=== PATIENT | male | born 1940 | race Caucasian/White ===

== ENCOUNTER 2018-01-05 08:00 | Outpatient (CLI) | payer MEDICARE, BC ==
[2018-01-05] MEDS ORDERED: Gadobenate Dimeglumine 529 MG/1 ML (20ML VIAL) ONE (08:24)
== END 2018-01-05 08:01 | disposition home or self-care (01) ==
LOC: BICMRI 08:00
PROVIDERS: ATTEND Internal Medicine Gastroenterology
DX: K74.60 Unspecified cirrhosis of liver (principal); R16.0 Hepatomegaly, not elsewhere classified; R41.3 Other amnesia; K76.9 Liver disease, unspecified; R93.7 Abnormal findings on diagnostic imaging of other parts of musculoskeletal system
CPT/HCPCS: 74183; A9579

== ENCOUNTER 2019-01-16 03:58 | Emergency (ER) | payer MEDICARE, BC | END 2019-01-16 05:16 | disposition home or self-care (01) | LOC: ERS 03:58 | DX: I10 Essential (primary) hypertension (principal); N40.0 Benign prostatic hyperplasia without lower urinary tract symptoms; F41.9 Anxiety disorder, unspecified; Z79.899 Other long term (current) drug therapy | CPT/HCPCS: 93005 ==

== ENCOUNTER 2019-01-16 21:19 | Emergency (ER) | payer MEDICARE, BC ==
[2019-01-17 00:17] LABS: #Eosinphils 0.3 thou/uL (0.0-0.7); #Monocytes 0.6 thou/uL (0.11-0.59); #Neutrophils 4.3 thou/uL (1.40-6.50); %Basophils 0.6 % (0.0-1.0); %Eosinophils 4.1 % (0.0-10.0); %Lymphocytes 15.5 % (21.0-51.0); %Monocytes 9.7 % (0.0-10.0); %Neutrophils 70.1 % (42.0-75.0); Hemoglobin 14.5 g/dL (14.0-18.0); Mean Corpuscular HGB CONC 33.8 g/dL (32.0-36.0); Mean Corpuscular Hemoglobin 32.9 pg (27.0-31.0); Mean Corpuscular Volume 97.3 fL (78.0-98.0); Platelet Count 232 thou/uL (130-400); RBC Distribution Width 11.8 % (11.5-14.5); White Blood Cell (WBC) Count 6.2 thou/uL (4.8-10.8)
[2019-01-17 00:35] LABS: ALT (SGPT) 15 U/L (8-55); AST (SGOT) 24 U/L (5-34); Albumin 4.5 g/dL (3.4-4.8); Alkaline Phosphatase 76 U/L (40-150); Anion Gap 14 mmol/L (10-20); BUN (Urea Nitrogen) 12 mg/dL (8.4-25.7); Bilirubin, Total 1.6 mg/dL (0.2-1.2); Calc. Creatinine Clearance 0 mL/min (70-130); Calcium 9.5 mg/dL (7.8-10.44); Carbon Dioxide 24 mmol/L (23-31); Chloride 92 mmol/L (98-107); Estimated GFR-MDRD Greater than 90; Globulin 2.7 g/dL (2.4-3.5); Glucose 76 mg/dL (83-110); Potassium 4.1 mmol/L (3.5-5.1); Protein, Total 7.2 g/dL (5.8-8.1); Sodium 126 mmol/L (136-145)
[2019-01-17] MEDS ORDERED: Ibuprofen 200 MG TAB ONE (01:27)
== END 2019-01-17 01:44 | disposition home or self-care (01) ==
LOC: ERS 21:19
DX: I10 Essential (primary) hypertension (principal); E87.1 Hypo-osmolality and hyponatremia; F41.9 Anxiety disorder, unspecified; N40.0 Benign prostatic hyperplasia without lower urinary tract symptoms; Z86.19 Personal history of other infectious and parasitic diseases; Z79.899 Other long term (current) drug therapy
CPT/HCPCS: 36415; 80053; 85025; 93005

== ENCOUNTER 2019-01-17 07:44 | Inpatient (IN) | payer MEDICARE, BC ==
[2019-01-17 08:26] LABS: #Eosinphils 0.2 thou/uL (0.0-0.7); #Lymphocytes 0.7 thou/uL (1.20-3.40); #Monocytes 0.5 thou/uL (0.11-0.59); #Neutrophils 4.3 thou/uL (1.40-6.50); %Basophils 0.6 % (0.0-1.0); %Eosinophils 3.5 % (0.0-10.0); %Lymphocytes 11.6 % (21.0-51.0); %Monocytes 8.4 % (0.0-10.0); %Neutrophils 75.9 % (42.0-75.0); Hemoglobin 13.6 g/dL (14.0-18.0); Mean Corpuscular HGB CONC 33.8 g/dL (32.0-36.0); Mean Corpuscular Hemoglobin 33.1 pg (27.0-31.0); Mean Corpuscular Volume 97.8 fL (78.0-98.0); Mean Platelet Volume 6.8 fL (7.4-10.4); Platelet Count 210 thou/uL (130-400); RBC Distribution Width 11.9 % (11.5-14.5); Red Blood Cell (RBC) Count 4.13 mill/uL (4.70-6.10); White Blood Cell (WBC) Count 5.7 thou/uL (4.8-10.8)
[2019-01-17 08:53] LABS: ALT (SGPT) 15 U/L (8-55); AST (SGOT) 23 U/L (5-34); Alkaline Phosphatase 70 U/L (40-150); Anion Gap 14 mmol/L (10-20); BUN (Urea Nitrogen) 12 mg/dL (8.4-25.7); Bilirubin, Total 2.2 mg/dL (0.2-1.2); Calc. Creatinine Clearance 0 mL/min (70-130); Carbon Dioxide 21 mmol/L (23-31); Chloride 93 mmol/L (98-107); Estimated GFR-MDRD Greater than 90; Globulin 2.5 g/dL (2.4-3.5); Glucose 85 mg/dL (83-110); Potassium 3.9 mmol/L (3.5-5.1); Protein, Total 6.5 g/dL (5.8-8.1); Sodium 124 mmol/L (136-145)
--- NOTE | 2019-01-17 09:13 | CT ---
CT Head without IV contrast COMPARISON: 02/26/2004 HISTORY: Injury after a fall. High blood pressure. TECHNIQUE: Axial CT imaging at 5 mm intervals from vertex through skull base without contrast FINDINGS: There is no evidence of an acute infarction, hemorrhage, mass effect, or midline shift. There is decr eased attenuation seen in the periventricular white matter which is nonspecific but likely attributable to chronic small vessel ischemic changes. There has been progression in chronic small ve ssel ischemic changes compared to prior exam. There is a low-density focus in the inferior and lateral aspect right basal ganglia related to lacunar infarction of indeterminate age. There is mild cerebral volume loss. The ventricular system is normal in size, shape, and position for the degree of sulcal atrophy. Visualized paranasal sinuses are clear. Osseous structures appear intact. IMPRESSION: 1. No acute intracranial abnormality demonstrated. 2. 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 3. Mild chronic small vessel ischemic changes and cerebral volume loss.
[2019-01-17] MEDS ORDERED: Aspirin Chewable 81 MG TAB ONE (09:49)
[2019-01-17] MEDS ORDERED: hydrALAZINE 20 MG/ML VIAL SLOW IVP PRN (09:51)
[2019-01-17] MEDS ORDERED: Acetaminophen 325 MG TAB PO PRN (09:51)
[2019-01-17] MEDS ORDERED: Bisacodyl 5 MG TAB PO PRN (09:51)
--- NOTE | 2019-01-17 10:43 | HP ---
PRIMARY CARE PROVIDER: Billy Valdez MD. CHIEF COMPLAINT: Fall. HISTORY OF PRESENT ILLNESS: Mr. Deng is a pleasant 78-year-old gentleman, who was seen at [facility] on January 17, 1019. He has a history of chronic hyponatremia. He also reports having seizures in the past secondary to hyponatremia. More recently, he was diagnosed with liver cancer and has started treatment on January 03 with Lenvima. His oncologist is Dr. Nelson. He was advised to watch for high blood pressure, since the medication can cause it. Two nights ago, he found that his blood pressure was in the 200s for systolic. He presented to the emergency room. He was observed and discharged home. He returned yesterday to the emergency room secondary to high blood pressure. He was discharged home after observation. He reports that he developed headache yesterday. Today morning, he was on the toilet and try to get up. He felt dizzy and he fell down and struck the back of his head on the floor. He thinks he may have passed out for a few minutes. He denies any chest pain or shortness of breath. He denies any fevers or chills. REVIEW OF SYSTEMS: All other systems reviewed and found to be negative. PAST MEDICAL HISTORY: Hepatitis C status post interferon treatment and Harvoni treatment, benign prostatic hypertrophy, hypertension, gastroesophageal reflux disease, anxiety disorder. He also has a history of liver cancer, chronic hyponatremia. SURGICAL HISTORY: Status post laparoscopic cholecystectomy, status post vasectomy. FAMILY HISTORY: Lung cancer in his mother. SOCIAL HISTORY: The patient denies tobacco use, alcohol use, or recreational drug use. CODE STATUS: I discussed his code status. He is full code. ALLERGIES: PENICILLIN, SULFA. CURRENT MEDICATIONS: 1. Lisinopril 20 mg daily. 2. Alprazolam 0.5 mg 2 times a day as needed. 3. Omeprazole 20 mg daily. 4. Hydrochlorothiazide 25 mg daily, he reports taking only one dose of hydrochlorothiazide so far. PHYSICAL EXAMINATION: GENERAL: On examination, Mr. Deng is awake and alert, not in acute distress. VITAL SIGNS: Blood pressure is 156/86, pulse 83, respiratory rate 20, and oxygen saturation 98% on room air. He is afebrile. EYES: No scleral icterus, no conjunctival pallor. ENT: Moist mucosal membranes. No oropharyngeal erythema or exudates. NECK: Supple, nontender, trachea is midline. RESPIRATORY: Accessory muscles of breathing are not active. Chest wall movements are symmetric bilaterally. Lungs are clear to auscultation without wheeze, rhonchi, or crepitations. CARDIOVASCULAR: S1 and S2 are heard, regular. Peripheral pulses palpable. No carotid bruit. No pericardial rub. ABDOMEN: Soft, nontender, bowel sounds heard, no hepatomegaly, no splenomegaly. NEUROLOGIC: Cranial nerves 2 through 12 are intact. No focal motor or sensory deficits. Power is 5/5 in all four extremities. Deep tendon reflexes 2+, plantars downgoing bilaterally. SKIN: No rashes or subcutaneous nodules. The patient has abrasion over the occiput. He also has abrasion over the right arm. LYMPHATIC: No cervical lymphadenopathy. PSYCHIATRIC: Normal mood, normal affect, the patient is oriented to person, place, and time. LABORATORY DATA: Mr. Deng's labs and investigations were reviewed. Noncontrast CT scan of the brain showed lacunar infarction of the right basal ganglia of indeterminate age, no acute intracranial abnormality and mild chronic small-vessel ischemic changes and cerebral volume loss. He has normal white count, normocytic anemia with hemoglobin 13.6, normal platelet count, decreased sodium of 134, normal potassium, normal creatinine, elevated total bilirubin of 2.2, and otherwise unremarkable liver profile. ASSESSMENT AND PLAN: Mr. Deng is a pleasant 78-year-old gentleman, who was seen at [facility] on January 17, 2019. His problem list includes: 1. Hyponatremia: Mr. Deng is presenting with chronic hyponatremia, etiology unclear. He will be admitted to the hospital for further management. We will initiate workup including serum and urine osmolality, urine electrolytes, and urine creatinine. We will recheck sodium level. We will provide normal saline. 2. Fall: Etiology is unclear, could be secondary to hyponatremia or to age indeterminate stroke that was seen on CT scan. 3. Ischemic cerebrovascular accident: Of indeterminate age. We will initiate workup including MRI brain, carotid Dopplers and 2D echocardiogram. We will consult Neurology service for opinion and help with management. 4. Benign prostate hypertrophy: Stable. 5. Liver cancer: We will continue Lenvima while he is in the hospital. 6. Hypertension: We will add p.r.n. medications for blood pressure management at this time. Many thanks for allowing me to participate in your patient's care. Please feel free to contact me with any questions or concerns. LEVEL OF RISK: Moderate. LEVEL OF COMPLEXITY: Moderate. Job ID: [id number]
[2019-01-17] MEDS ORDERED: Acetaminophen 325 MG TAB ONE (10:46)
[2019-01-17] MEDS ORDERED: Ketorolac Tromethamine 30 MG/ML VIAL ONE (11:05)
[2019-01-17] MEDS ORDERED: Ketorolac Tromethamine 30 MG/ML VIAL IVP SCH (11:15)
--- NOTE | 2019-01-17 12:00 | MRI ---
Exam: Brain MRI without contrast HISTORY: Stroke. Weakness. COMPARISON: None FINDINGS: Calvarial marrow signal intensity: Appropriate T1 signal Gradient echo sequence: No hemorrhage Brain parenchyma: No mass, mass effect or midline shift. Brain volume, age-appropriate. Cortical weaver-white matter differentiation: Preserved Restricted diffusion: Central arterial flow voids are maintained. Absent restricted diffusion White matter signal intensities: T12 FLAIR white matter hyperintensities due to chronic small vessel ischemic changes Sinuses: Adequate aeration of the paranasal sinuses and mastoid air cells. IMPRESSION: 1. Absent restricted diffusion. No acute infarct 2. Age-appropriate atrophy. Chronic small vessel ischemic changes white matter are present.
[2019-01-17] MEDS ORDERED: cefTRIAXone\\ROCEPHIN 2 GM in Sodium Chloride 0.9% 100 ML IVPB SCH (13:15)
[2019-01-17] MEDS ORDERED: ALPRAZolam 0.25 MG TAB ONE (13:16)
[2019-01-17] MEDS ORDERED: traMADol HCl 50 MG TAB ONE (13:16)
[2019-01-17] MEDS ORDERED: Famotidine 20 MG TAB ONE (13:21)
[2019-01-17] MEDS: Sodium Chloride 0.9% 1,000 ML IV SCH (13:36)
[2019-01-17] MEDS: ALPRAZolam 0.5 MG TAB PO PRN ×2 (13:37→22:14)
[2019-01-17] MEDS: traMADol HCl 50 MG TAB PO PRN (13:40)
--- NOTE | 2019-01-17 15:24 | ULT ---
BILATERAL CAROTID DUPLEX ULTRASOUND: HISTORY: CVA TECHNIQUE: Grayscale, color-flow and spectral Doppler ultrasound imaging of the extracranial carotid artery syst ems was performed bilaterally. FINDINGS: Mild plaque formation. The peak systolic velocity in the right ICA measures 70 cm/s. The peak systolic velocity in the left ICA measures 67 cm/s. Vertebral flow: antegrade, bilaterally. . IMPRESSION: No hemodynamically significant stenosis of Both ICAs.
[2019-01-17 17:37] LABS: Bilirubin Negative (Negative); Blood, Urine Small (Negative); Clarity CLEAR (Clear); Glucose, Urine (Dipstick) Negative (Negative); Leukocyte Negative (Negative); Nitrite Negative (Negative); Protein, Urine (Dipstick) Negative (Neg-Trace); Specific Gravity, Urine 1.016 (1.002-1.036); Urobilinogen 0.2 mg/dL (0.2-1.0); pH, Urine 5.5 (5.0-9.0)
[2019-01-17 17:39] LABS: Bacteria/HPF None Seen HPF (None Seen); Hyaline Casts/LPF 0-3 HYALINE CAST LPF (0-3 Hyaline); Pathc Cast-AUWi Flag 0.13 (0-2.49); Squamous Epithelial None Seen HPF (0-3); WBC/HPF 0-3 HPF (0-3)
[2019-01-17 17:44] LABS: Urine Culture Reflex No No
[2019-01-17 18:00] LABS: Potassium, Urine 57.2 mmol/L
[2019-01-17] MEDS: Ketorolac Tromethamine 30 MG/ML VIAL IVP SCH ×2 (18:30→23:10)
[2019-01-17] MEDS ORDERED: Amlodipine 5 MG TAB PO PRN (19:11)
[2019-01-17] MEDS: Finasteride 5 MG TAB PO SCH (22:14)
[2019-01-17] MEDS: Lisinopril 20 MG TAB PO SCH (22:15)
--- NOTE | 2019-01-17 23:35 | CON ---
DATE OF CONSULTATION: 01/17/2019 CONSULTING PHYSICIAN: Hospitalist Service. IMPRESSION: 1. No acute neurologic issues are present. 2. Hypertension secondary to his chemotherapy. PLAN: 1. Blood pressure control. 2. Patient can be discharged home at your discretion. HISTORY OF PRESENT ILLNESS: Mr. Deng is a 78-year-old gentleman who is undergoing treatment for primary liver cancer. His chemotherapy has been precipitating hypertensive events for some time now. He is followed by Dr. Conde who has tried to manage blood pressure with lisinopril and Xanax to control his anxiety. His blood pressure is running high and he could not get it down. On Wednesday, he came to the emergency room initially for that. Subsequently sent home and brought back today for similar symptoms. CT of the brain was done and read out as a right basal ganglia infarct of indeterminate age. They went ahead and did a MRI of the brain, which failed to reveal any evidence of acute ischemic change or any basal ganglia infarcts. His carotid ultrasound is also clear. He has never had any focal neurologic symptoms in the past. He occasionally gets a headache when the blood pressure gets high enough. PAST HISTORY: Liver cancer. ALLERGIES: 1. PENICILLIN. 2. SULFA. MEDICATIONS: List was reviewed. He is currently on aspirin. FAMILY HISTORY: Noncontributory. REVIEW OF SYSTEMS: Ten-system review of systems is otherwise negative. PHYSICAL EXAMINATION: VITAL SIGNS: Blood pressure 170/90. HEENT: Pupils are equal and reactive. Conjunctivae clear. Oropharynx clear. NECK: Supple. No lymphadenopathy. EXTREMITIES: No cyanosis or edema. NEUROLOGIC EXAM: He is alert and appropriate. His speech is fluent and clear. Cranial nerves are intact. There are no focal deficits present. No abnormal movements were seen. SUMMARY: This is an elderly gentleman who came in due to hypertensive problems. He has undergone a stroke workup for an undetermined reason. I do not see any acute neurologic issues. He can be discharged at your discretion. Job ID: [id number]
[2019-01-18] MEDS: Sodium Chloride 0.9% 1,000 ML IV SCH ×2 (05:05→22:04)
[2019-01-18] MEDS: Ketorolac Tromethamine 30 MG/ML VIAL IVP SCH ×4 (05:05→23:19)
[2019-01-18 05:27] LABS: #Eosinphils 0.3 thou/uL (0.0-0.7); #Lymphocytes 0.8 thou/uL (1.20-3.40); #Monocytes 0.6 thou/uL (0.11-0.59); #Neutrophils 4.2 thou/uL (1.40-6.50); %Basophils 0.5 % (0.0-1.0); %Lymphocytes 13.9 % (21.0-51.0); %Monocytes 9.5 % (0.0-10.0); %Neutrophils 71.1 % (42.0-75.0); Hemoglobin 12.5 g/dL (14.0-18.0); Mean Corpuscular HGB CONC 34.6 g/dL (32.0-36.0); Mean Corpuscular Hemoglobin 34.2 pg (27.0-31.0); Mean Corpuscular Volume 98.9 fL (78.0-98.0); Mean Platelet Volume 6.8 fL (7.4-10.4); Platelet Count 183 thou/uL (130-400); RBC Distribution Width 11.8 % (11.5-14.5); Red Blood Cell (RBC) Count 3.65 mill/uL (4.70-6.10); White Blood Cell (WBC) Count 5.8 thou/uL (4.8-10.8)
[2019-01-18 05:52] LABS: Anion Gap 9 mmol/L (10-20); BUN (Urea Nitrogen) 14 mg/dL (8.4-25.7); Calc. Creatinine Clearance 79 mL/min (70-130); Calcium 8.3 mg/dL (7.8-10.44); Carbon Dioxide 26 mmol/L (23-31); Cardiac Risk 3.6 (Less than 4.5); Chloride 97 mmol/L (98-107); Cholesterol 211 mg/dl (< 200 Desired); Estimated GFR-MDRD Greater than 90; Glucose 75 mg/dL (83-110); HDL Cholesterol 58 mg/dL (>60 Neg Risk); LDL Cholesterol, Calculated 141 mg/dL; Potassium 4.2 mmol/L (3.5-5.1); Sodium 128 mmol/L (136-145); Triglycerides 61 mg/dL (Less than 150)
[2019-01-18] MEDS ORDERED: Lisinopril 20 MG TAB PO SCH (09:00)
[2019-01-18] MEDS ORDERED: Finasteride 5 MG TAB PO SCH (09:00)
[2019-01-18] MEDS: Aspirin 325 mg Enteric Coated Tablet PO SCH (09:23)
[2019-01-18] MEDS: ALPRAZolam 0.5 MG TAB PO PRN (11:41)
[2019-01-18 14:26] VITALS: BMI 23.6
--- NOTE | 2019-01-18 14:58 | PRG ---
DATE OF SERVICE: 01/18/2019 SUBJECTIVE: The patient feels well. Got up with Physical Therapy today. Was little wobbly until he got his "sea legs" back. Now, he feels like he is completely back to normal and feels comfortable going home. OBJECTIVE: VITAL SIGNS: Temperature is 97.2, pulse 80, blood pressure 160/86, O2 saturation 97% on room air. GENERAL: Appearance age-appropriate male, in no distress. HEENT: PERRL. No OP lesions. HEART: Regular rate and rhythm. LUNGS: Clear bilaterally. ABDOMEN: Soft, nontender. EXTREMITIES: No cyanosis, clubbing, or edema. LABORATORY DATA: White count 5.8, hemoglobin 12.5. Sodium 128, BUN 14, creatinine 0.78. Cholesterol 211, LDL 141, triglycerides 61, HDL is 58. MRI of the brain shows no evidence of infarct. IMPRESSION AND PLAN: 1. Hyponatremia. The patient has chronic hyponatremia. His numbers are little better today, certainly consistent with his chronic baseline. No further intervention. He is not symptomatic. Okay to discharge from that perspective. 2. Hypertension. The patient reports that his cancer treatments are causing some hypertension. He takes the lisinopril. He admits that there is an anxiety component to it, so he often will take an alprazolam when his pressures do not respond to his usual blood pressure medicines and that frequently will work. He also has amlodipine to use p.r.n., if the systolic is greater than 180. Sounds like this is a regimen that has been adjusted as an outpatient in the context of his treatment. Therefore, I do not anticipate aggressively changing those numbers as he is reportedly typically pretty well controlled at home time. 3. Liver cancer. Continue to follow up with his oncologist in [place]. 4. Concern for cerebrovascular accident. At the patient's initial presentation , he had hypertension and a fall, and a CT of his head indicated possible lacunar infarction of indeterminate age. However, MRI has not demonstrated any evidence of infarct. 5. Disposition. Echo is being performed now. Assuming we can get the results back on that today, we should be able to discharge. I was able to see the images myself and certainly, it does not appear that the patient has any severe cardiomyopathy and his ejection fraction looks pretty normal. We will consider discharging him later today even if we do not have those results backs and can follow up on those results tomorrow, if need be. Job ID: [id number] MTDD
[2019-01-18] MEDS: Lisinopril 20 MG TAB PO SCH (21:47)
[2019-01-18] MEDS: traMADol HCl 50 MG TAB PO PRN (21:48)
[2019-01-18] MEDS: Finasteride 5 MG TAB PO SCH (21:50)
[2019-01-19] MEDS: Ketorolac Tromethamine 30 MG/ML VIAL IVP SCH (05:51)
[2019-01-19] MEDS ORDERED: ALPRAZolam 0.5 MG TAB PO PRN (08:48)
[2019-01-19] MEDS ORDERED: cloNIDine 0.1 MG TAB PO PRN (08:49)
[2019-01-19] MEDS ORDERED: Non-Formulary Item 1 EACH (Aspirin 325 MG) PO SCH (09:00)
[2019-01-19] MEDS ORDERED: Aspirin 325 MG TAB PO SCH (09:00)
[2019-01-19] MEDS: Aspirin 325 mg Enteric Coated Tablet PO SCH (09:18)
[2019-01-19] MEDS: traMADol HCl 50 MG TAB PO PRN (09:39)
[2019-01-19] MEDS: ALPRAZolam 0.5 MG TAB PO PRN (11:03)
--- NOTE | 2019-01-19 13:49 | PDOC.PN ---
- Subjective Encounter Start Date: 01/19/19 Encounter Start Time: 13:47 Subjective: feels headache and feels hands are swollen -: feels anxious that his BP is running high -: daughter at bedside and reassurance provided.pt educated - Objective Resuscitation Status - Order Detail: 01/17/19 09:51 Resuscitation Status Routine Resuscitation Status: FULL: Full Resuscitation Discussed with: patient KIZZY Reviewed: Yes Vital Signs & Weight: Vital Signs (12 hours) Temp Pulse Resp BP BP BP Pulse Ox 01/19/19 11:58 97.4 F L 94 17 138/78 94 L 01/19/19 11:04 102 H 149/77 H 01/19/19 09:30 97 01/19/19 09:17 90 187/92 H 01/19/19 09:00 98.2 F 90 18 187/92 H 97 01/19/19 04:00 97.7 F 75 16 185/85 H 96 Weight Admit Weight 155 lb Weight 155 lb 9.6 oz I&O: 01/18/19 01/19/19 01/20/19 06:59 06:59 06:59 Intake Total 1380 2399 Output Total 520 500 Balance 860 1899 Result Diagrams: 01/18/19 05:09 01/18/19 05:09 Additional Labs: Laboratory Tests 07/30/15 01/17/19 01/17/19 05:24 00:01 08:18 Sodium 128 L 126 L 124 L Cholesterol LDL Cholesterol, Calc HDL Cholesterol 01/18/19 05:09 Sodium 128 L Cholesterol 211 H LDL Cholesterol, Calc 141 HDL Cholesterol 58 Phys Exam - Physical Examination Constitutional: NAD HEENT: PERRLA, moist MMs, sclera anicteric, oral pharynx no lesions Neck: no nodes, no JVD, supple, full ROM Respiratory: no wheezing, no rales, no rhonchi, clear to auscultation bilateral Cardiovascular: RRR, no significant murmur, no rub Gastrointestinal: soft, non-tender, no distention, positive bowel sounds Musculoskeletal: no edema, pulses present Neurological: non-focal, normal sensation, moves all 4 limbs Psychiatric: normal affect, A&O x 3 Skin: no rash Dx/Plan (1) Uncontrolled hypertension Code(s): I10 - ESSENTIAL (PRIMARY) HYPERTENSION Status: Acute Comment: Change amlodipine to scheduled and add PRN clonidine. Pt educated about use (2) Hyponatremia Code(s): E87.1 - HYPO-OSMOLALITY AND HYPONATREMIA Status: Chronic Comment: stable.monitor. Pt was started on HCTZ w worsening of hyponatremia and now off of it.asymptomatic (3) Liver cancer Code(s): C22.9 - MALIG NEOPLASM OF LIVER, NOT SPECIFIED PRIMARY OR SEC Status: Chronic Comment: on Chemorx per Oncology in [place] - Plan plan discussed w/ family, PT/OT, respiratory therapy, incentive spirometry, DVT proph w/SCDs DC home later today or tomorrow if BP better -: AM labs if still here -: add prn meds * . Review of Systems - Review of Systems Constitutional: weakness, malaise. negative: fever, chills, sweats, other ENT: negative: Ear Pain, Ear Discharge, Nose Pain, Nose Discharge, Nose Congestion, Mouth Pain, Mouth Swelling, Throat Pain, Throat Swelling, Other Respiratory: negative: Cough, Dry, Shortness of Breath, Hemoptysis, SOB with Excertion, Pleuritic Pain, Sputum, Wheezing Cardiovascular: negative: chest pain, palpitations, orthopnea, paroxysmal nocturnal dyspnea, edema, light headedness, other Gastrointestinal: negative: Nausea, Vomiting, Abdominal Pain, Diarrhea, Constipation, Melena, Hematochezia, Other Genitourinary: negative: Dysuria, Frequency, Incontinence, Hematuria, Retention , Other Musculoskeletal: negative: Neck Pain, Shoulder Pain, Arm Pain, Back Pain, Hand Pain, Leg Pain, Foot Pain, Other Neurological: negative: Weakness, Numbness, Incoordination, Change in Speech, Confusion, Seizures, Other - Medications/Allergies Allergies/Adverse Reactions: Allergies Allergy/AdvReac Type Severity Reaction Status Date / Time Penicillins Allergy Verified 07/28/15 16:24 Sulfa (Sulfonamide Allergy Verified 07/29/15 04:31 Antibiotics) Medications: Current Medications Acetaminophen (Tylenol) 650 mg PO Q4H PRN PRN Reason: Headache/Fever/Mild Pain (1-3) Alprazolam (Xanax) 0.5 mg PO BIDPRN PRN PRN Reason: Anxiety Last Admin: 01/19/19 11:03 Dose: 0.5 mg Amlodipine Besylate (Norvasc) 5 mg PO DAILY PRN PRN Reason: SBP Greater Than 180 Last Admin: 01/19/19 05:51 Dose: 5 mg Aspirin (Ecotrin) 325 mg PO DAILY [facility] Last Admin: 01/19/19 09:18 Dose: 325 mg Bisacodyl (Dulcolax) 10 mg PO DAILYPRN PRN PRN Reason: Constipation Clonidine (Catapres) 0.1 mg PO Q4H PRN PRN Reason: SBP>160 Finasteride (Proscar) 5 mg PO HS [facility] Last Admin: 01/18/19 21:50 Dose: 5 mg Hydralazine HCl (Apresoline) 10 mg SLOW IVP Q4H PRN PRN Reason: BP > 220/170 Last Admin: 01/19/19 09:17 Dose: 10 mg Lisinopril (Zestril) 40 mg PO HS [facility] Last Admin: 01/18/19 21:47 Dose: 40 mg Pantoprazole Sodium (Protonix) 40 mg PO DAILY [facility] Last Admin: 01/19/19 09:18 Dose: 40 mg Sodium Chloride (Flush - Normal Saline) 10 ml IVF PRN PRN PRN Reason: Saline Flush Tramadol HCl (Ultram) 50 mg PO Q6H PRN PRN Reason: pain 4-6 Last Admin: 01/19/19 09:39 Dose: 50 mg
[2019-01-19 16:39] VITALS: BP 133/72; TEMP 98.3
--- NOTE | 2019-01-20 02:14 | DIS ---
DATE OF ADMISSION: 01/17/2019 DATE OF DISCHARGE: 01/19/2019 CONDITION: At the time of discharge, stable and improved. DISCHARGE DISPOSITION: Home. DISCHARGE DIAGNOSES: 1. Uncontrolled hypertension, improved control. 2. Chronic hyponatremia, worsened with hydrochlorothiazide use, much improved, asymptomatic. 3. History of liver cancer, on chemotherapy according to [place] oncologist. 4. History of hepatitis C status post treatment. 5. BPH. 6. Gastroesophageal reflux disease. 7. Hypertension. 8. Anxiety. DISCHARGE MEDICATIONS: Resume home medication as follows; 1. Aspirin 325 mg daily. 2. Tramadol p.r.n. 3. Finasteride 5 mg daily. 4. Omeprazole 20 mg daily. 5. Lisinopril 20 mg daily. 6. Alprazolam 0.5 mg p.o. b.i.d. p.r.n. New medications, amlodipine 5 mg daily and clonidine 0.1 mg every 6 hours p.r.n. for systolic blood pressure more than 160. PROCEDURES DONE IN THE HOSPITAL: 1. CT scan of the brain which shows no acute changes. There is an age-indeterminate lacunar infarction in the right basal ganglia and small vessel ischemic changes. 2. MRI of the brain: MRI of the brain is negative for any evidence of infarction that was suggested in the CT scan. 3. Carotid Doppler ultrasound, which shows no hemodynamically significant stenosis of both ICAs. 4. Transthoracic echocardiogram, which showed suggestion of diastolic dysfunction, otherwise EF estimated at 55% to 60%. IN-HOUSE CONSULTATION: Neurology, Dr. French. PRIMARY CARE PHYSICIAN: Billy Valdez MD HISTORY OF PRESENTING ILLNESS: Mr. Deng is a pleasant 78-year-old male with past medical history of liver cancer, on treatment with oral Lenvima, starting January 03, who presented to the emergency room after sustaining a fall. He was found to have uncontrolled hypertension. Since he has started this medication, was recently started on hydrochlorothiazide. On the day of presentation, he felt dizzy and fell down and was passed out for few a minutes and was brought to the ER. In the emergency room, his CT scan was questionable for lacunar infarction of age indeterminate. He was found to have low sodium with a sodium level of 124. Baseline around 125 to 126. He was admitted for further evaluation and care. Neurology was consulted and stroke workup was initiated. Please see admission history and physical dictated by Dr. Almeida on 01/17/2019. HOSPITAL COURSE: The patient was seen by Dr. French from Neurology as well. His stroke workup was unremarkable. He did not have any acute stroke. His blood pressure was difficult to control in the hospital. He was taking amlodipine on as needed basis, which was changed to schedule with improved control. He was given clonidine to use p.r.n. for blood pressure control at home. I have seen him and examined him this morning. His sodium is improved to 128 without any specific interventions. He is instructed to continue his current diet where he monitors his salt. He is asymptomatic. He has been taken off his hydrochlorothiazide. He will follow up with primary care physician with outpatient labs as indicated by PCP. As of this morning, he is stable and will be discharged home with improved blood pressure control. His discharge vitals show blood pressure of 138/78. I have discussed the discharge plan with the patient who is eager to go home at this time. He was having some symptoms with relation to uncontrolled hypertension in the morning, which have resolved with improvement in his blood pressure. He will follow up with primary care physician in close proximity. Job ID: [id number]
== END 2019-01-19 19:15 | disposition home health service (06) | DRG 641 ==
LOC: ERS 07:44 → ERHOLD 12:20 → 2SE 16:14
PROVIDERS: ADMIT Internal Medicine; ATTEND Internal Medicine
DX: E87.1 Hypo-osmolality and hyponatremia (principal); C22.8 Malignant neoplasm of liver, primary, unspecified as to type; K21.9 Gastro-esophageal reflux disease without esophagitis; F41.9 Anxiety disorder, unspecified; Z90.49 Acquired absence of other specified parts of digestive tract; N40.0 Benign prostatic hyperplasia without lower urinary tract symptoms; I10 Essential (primary) hypertension; T45.1X5A Adverse effect of antineoplastic and immunosuppressive drugs, initial encounter; Z88.0 Allergy status to penicillin; Z88.2 Allergy status to sulfonamides; Z86.19 Personal history of other infectious and parasitic diseases; T50.2X5A Adverse effect of carbonic-anhydrase inhibitors, benzothiadiazides and other diuretics, initial encounter; Z91.81 History of falling
CPT/HCPCS: 36415; 70450; 70551; 80048; 80053; 80061; 81001; 82436; 82570; 83930; 83935; 84133; 84300; 85025; 93005; 93306; 93880; 96374; 99283; J0360; J1885

== ENCOUNTER 2019-11-12 10:41 | Inpatient (IN) | payer MEDICARE, BC ==
[2019-11-12 11:30] LABS: Band 13 % (5-11); Lymphocytes 4 % (21-51); MDiff Complete? YES; Mean Corpuscular HGB CONC 34.7 g/dL (32.0-36.0); Mean Corpuscular Hemoglobin 33.9 pg (27.0-31.0); Mean Corpuscular Volume 97.9 fL (78.0-98.0); Mean Platelet Volume 8.7 fL (7.4-10.4); Monocytes 4 % (0-10); Neutrophil 79 % (42-75); Platelet Count 283 thou/uL (130-400); RBC Distribution Width 12.9 % (11.5-14.5); Red Blood Cell (RBC) Count 3.84 mill/uL (4.70-6.10); White Blood Cell (WBC) Count 21.4 thou/uL (4.8-10.8)
--- NOTE | 2019-11-12 12:01 | RAD ---
EXAM: Chest 2 views: HISTORY: Fever and elevated white blood cell count COMPARISON: 07/28/2015 FINDINGS: There is a normal-sized cardiomediastinal silhouette. There is no evidence of consolidation, mass, or pleural effusion. The bones are unremarkable. IMPRESSION: No evidence of acute cardiopulmonary disease
[2019-11-12 12:26] LABS: ALT (SGPT) 19 U/L (8-55); AST (SGOT) 45 U/L (5-34); Albumin 4.2 g/dL (3.4-4.8); Alkaline Phosphatase 80 U/L (40-110); Anion Gap 18 mmol/L (10-20); BUN (Urea Nitrogen) 16 mg/dL (8.4-25.7); Bilirubin, Total 1.8 mg/dL (0.2-1.2); Calc. Creatinine Clearance 0 mL/min (70-130); Carbon Dioxide 16 mmol/L (23-31); Chloride 97 mmol/L (98-107); Estimated GFR-MDRD Greater than 90; Globulin 3.3 g/dL (2.4-3.5); Glucose 114 mg/dL (83-110); Protein, Total 7.5 g/dL (5.8-8.1); Sodium 126 mmol/L (136-145)
[2019-11-12 13:30] LABS: Bacteria/HPF 3+ HPF (None Seen); Bilirubin Negative (Negative); Blood, Urine Trace (Negative); Clarity Turbid (Clear); Glucose, Urine (Dipstick) Normal (Negative); Leukocyte 500 Leu/uL (Negative); Nitrite Negative (Negative); Protein, Urine (Dipstick) 100 mg/dL (Neg-Trace); RBC/HPF 0-3 HPF (0-3); Squamous Epithelial 0-3 HPF (0-3); Urobilinogen Normal mg/dL (Less than 2); WBC/HPF Greater than 50 HPF (0-3)
[2019-11-12] MEDS ORDERED: cefTRIAXone\\ROCEPHIN 2 GM VIAL ONE (13:56)
[2019-11-12 14:44] LABS: PTT 29.7 SEC (22.9-36.1); Prothrombin Time 13.5 SEC (12.0-14.7)
[2019-11-12] MEDS ORDERED: Senokot S 8.6-50 MG TAB PO PRN (15:38)
[2019-11-12] MEDS ORDERED: Bisacodyl 5 MG TAB PO SCH (16:45)
[2019-11-12] MEDS ORDERED: Polyethylene Glycol 3350 17 GM Packet PO SCH (17:00)
[2019-11-12] MEDS: Sodium Chloride 0.9% 1,000 ML IV SCH (19:27)
[2019-11-12 19:45] VITALS: BMI 24.3
[2019-11-12] MEDS: ALPRAZolam 0.5 MG TAB PO PRN (21:17)
[2019-11-12] MEDS: MEROPENEM 1 GM/50 ML 1 GM in Premix Bag 1 BAG IVPB SCH (21:17)
--- NOTE | 2019-11-12 21:35 | HP ---
CHIEF COMPLAINT: Generalized weakness and abdominal bloating. HISTORY OF PRESENT ILLNESS: The patient is a 79-year-old male with a history of CAD, status post stent in July of 2019; liver cancer, status post current chemotherapy; hypertension; hepatitis C; BPH; and hyponatremia, who presents to the hospital with complaints of abdominal bloating and just generalized weakness times couple of days. The patient states that he recently was in [place] on , had Y90 procedure on Wednesday, did not feel really well after the procedure. However, on Wednesday, he had generalized weakness and had a low-grade temperature of 99.8. The patient states that on his instructions, it was noted that if he does have a low-grade fever to go into the nearest ER. He did so and at this time, he did have an elevated white count and he was given some IV hydration. However, no source of infection was indicated. He did have a CT of abdomen and pelvis, which indicated pancreatitis. He was then sent home and he returned the next day for repeat lab work, which indicated worsening WBCs and at this time, his fever ranged from 99.8 to 100.6. At this time, he was asked to come into the ER to be admitted to the hospital. The patient denies any dysuria, any chills, however, he feels very cold. He denies any cough or sputum production. He denies any chest pain currently. The patient is currently on the liver transplant list. ER did speak with his child support case officer in [place], who stated that if his MELD score is 25 and above, he needs to be transferred to [place]. However, currently his MELD score was 9, so he is going to be admitted here to the hospital for further evaluation. The patient states that he does have a history of constipation and has been seeing the GI for constipation and has been taking fiber. He did have a bowel movement this morning. However, he has been battling this throughout this time. He was on Lenvima, which ended in August, this is the chemo agent orally and he has had mapping x2, his third one is due, however, they do not have a certain date for it yet. However, he did have the Y90 procedure done on Wednesday, which was Arana's Day. PAST MEDICAL HISTORY: 1. He has a history of hyponatremia. 2. He has a history of liver cancer. 3. He has history of CAD, status post stent in July of 2019. 4. He has a history of BPH. 5. Hypertension. 6. Anxiety. 7. Hepatitis C, he is status post interferon x2 treatments and also with Harvjuanito. PAST SURGICAL HISTORY: As of the following; he has had a cholecystectomy. He has had a heart stent put in and cataract surgery. SOCIAL HISTORY: He denies any alcohol use or drug use. No smoking history. He is a full code. Lives with his family. ALLERGIES: HE IS ALLERGIC TO HYDROCHLOROTHIAZIDE BECAUSE IT CAUSES HYPONATREMIA. HE IS ALLERGIC TO PENICILLIN AND SULFA DRUGS. CURRENT MEDICATIONS: 1. He is on alprazolam 0.5 mg twice a day. 2. Omeprazole 20 mg daily. 3. Clopidogrel 75 mg daily. 4. Aspirin 81 mg daily. 5. Amlodipine 5 mg daily. 6. Finasteride 5 mg daily. 7. Flomax 0.4 mg daily. 8. Lisinopril 40 mg daily. 9. Rosuvastatin 20 mg daily. 10. He is on calcium 500 mg daily. 11. He is also on MiraLAX 17 g daily. 12. Clonidine 0.1 patch daily. REVIEW OF SYSTEMS: All negative except for the ones mentioned above in the HPI. FAMILY HISTORY: Mother had lung cancer. Father in a motor vehicle accident. LABORATORY RESULTS: As of the following; WBCs of 21.4, hemoglobin of 13.0, hematocrit of 37.6, his platelets are 283. Chemistry; sodium of 126, potassium of 5.0, BUN of 16, creatinine of 0.78. His total bilirubin is 1.8, AST is 45, his lipase is 276, and his AST is 45. His coagulation; his INR was 1.0. His urine appears to have wbc's greater than 50. He has 3+ bacteria. He did have a chest x-ray, which appeared to be normal. PHYSICAL EXAMINATION: VITAL SIGNS: Are as of the following; temperature of 98.8, blood pressure 155/80, 93 pulse, respiratory rate 18, and O2 saturation 96% on room air. GENERAL: He is awake, alert, and oriented x3. Does not appear in any distress. HEENT: He does appear significantly dehydrated. His mucous membranes are dry. No adenopathy noted. CV: S1 and S2 present. No murmurs, rubs, or gallops. LUNGS: Clear to auscultation. No rhonchi or wheezes noted. ABDOMEN: Soft, bloated. Bowel sounds are present x2. However, no pain upon palpation to his epigastric or anywhere in his abdomen. EXTREMITIES: No edema. Pedal pulses are present x2. He does have a right groin site, which appears intact from his recent procedure. NEUROVASCULAR: There are no focal deficits noted. SKIN: He does have significant bruising to his bilateral upper extremities. ASSESSMENT AND PLAN: The patient is a very pleasant 79-year-old male, who presents to the hospital with fever. 1. Sepsis. We will start the patient on antibiotics that will cover also possible enterococcus since he recently had a Y90 procedure with some beats, which were radiation beats. I will also start him on hydration and also his sepsis could be secondary to urinary tract infection. We will send a culture also. His blood cultures were also sent. 2. Pancreatitis. His lipase is mildly elevated. I do not have the official CT read. However, I did speak with the ER, who stated that pancreatitis was conformed with our radiologist here. He had no blockages noted in his colon. The patient currently has no abdominal pain. No nausea or vomiting. I will start him on clear liquid diet and advance it to full if he tolerates it. 3. Hyponatremia. We will limit his free water intake. Giving him normal saline might worsen his hyponatremia. However, currently he clinically appears dehydrated. We will continue to monitor. The patient states that he really does not know the reason why he is hyponatremic. He has been like this since he has been on two interferon therapies, but, however, he does have liver disease, and based on his previous studies that indicated that possible syndrome of inappropriate antidiuretic hormone secretion is also a possibility. 4. Constipation. We will start the patient on lower extremity enemas and also some oral Dulcolax medication and we will continue to monitor. 5. Deep venous thrombosis prophylaxis. We will put the patient on Lovenox or SCDs. 6. Coronary artery disease. I will continue his aspirin and Plavix. Of note, I am going to consult GI given his complexity, especially in his liver cancer. Job ID: [id number]
[2019-11-13] MEDS: Sodium Chloride 0.9% 1,000 ML IV SCH ×4 (03:41→21:15)
[2019-11-13] MEDS: MEROPENEM 1 GM/50 ML 1 GM in Premix Bag 1 BAG IVPB SCH ×3 (04:38→21:14)
[2019-11-13 05:37] LABS: Hemoglobin 11.8 g/dL (14.0-18.0); Mean Corpuscular HGB CONC 33.4 g/dL (32.0-36.0); Mean Corpuscular Hemoglobin 32.7 pg (27.0-31.0); Mean Corpuscular Volume 97.9 fL (78.0-98.0); Mean Platelet Volume 7.5 fL (7.4-10.4); Platelet Count 212 thou/uL (130-400); RBC Distribution Width 12.6 % (11.5-14.5); White Blood Cell (WBC) Count 16.3 thou/uL (4.8-10.8)
[2019-11-13 05:55] LABS: Anion Gap 10 mmol/L (10-20); BUN (Urea Nitrogen) 11 mg/dL (8.4-25.7); Calc. Creatinine Clearance 93 mL/min (70-130); Calcium 8.1 mg/dL (7.8-10.44); Carbon Dioxide 23 mmol/L (23-31); Chloride 99 mmol/L (98-107); Estimated GFR-MDRD Greater than 90; Glucose 84 mg/dL (83-110); Potassium 3.9 mmol/L (3.5-5.1); Sodium 128 mmol/L (136-145)
[2019-11-13] MEDS ORDERED: Fleet Enema 133 ML BOT PR SCH (07:00)
[2019-11-13 07:20] LABS: Band 4 % (5-11); Lymphocytes 6 % (21-51); MDiff Complete? YES; Monocytes 4 % (0-10); Neutrophil 86 % (42-75); Platelet Morphology Comment Appears Adequate; Polychromasia SLIGHT = 2-3 cells (100X) (0-2/hpf)
[2019-11-13] MEDS: Enoxaparin Sodium 40 MG/0.4 ML SYRINGE SC SCH (09:39)
[2019-11-13] MEDS: Finasteride 5 MG TAB PO SCH (09:39)
[2019-11-13] MEDS: Aspirin 81 mg Enteric Coated Tablet PO SCH (09:39)
[2019-11-13] MEDS: Clopidogrel Bisulfate 75 MG TAB PO SCH (09:39)
[2019-11-13] MEDS: Polyethylene Glycol 3350 17 GM Packet PO SCH ×2 (09:40→20:04)
[2019-11-13] MEDS ORDERED: cloNIDine 0.1 MG TAB PO PRN (10:53)
[2019-11-13] MEDS ORDERED: Amlodipine 5 MG TAB PO SCH ×2 (10:57→11:15)
[2019-11-13] MEDS ORDERED: Lisinopril 20 MG TAB PO SCH ×2 (10:57→11:15)
[2019-11-13] MEDS ORDERED: Pantoprazole 40 MG VIAL IVP SCH (13:00)
--- NOTE | 2019-11-13 16:32 | PDOC.HOSPP ---
- Subjective Encounter Date: 11/13/19 Encounter Time: 11:15 Subjective: pt up in bed feels well. He is tolerating his cl diet. - Objective Vital Signs & Weight: Vital Signs (12 hours) Temp Pulse Resp BP BP Pulse Ox 11/13/19 12:51 89 150/75 H 11/13/19 08:00 93 L 11/13/19 07:14 98.8 F 89 18 153/75 H 93 L 11/13/19 04:31 98.5 F 94 18 149/75 H 94 L Weight Weight 155 lb I&O: 11/12/19 11/13/19 11/14/19 06:59 06:59 06:59 Intake Total 780 Output Total 125 Balance 655 Result Diagrams: 11/13/19 04:46 11/13/19 04:46 Hospitalist ROS - Review of Systems Respiratory: denies: cough, dry, shortness of breath, hemoptysis, SOB with excertion, pleuritic pain, sputum, wheezing, other Cardiovascular: denies: chest pain, palpitations, orthopnea, paroxysmal noc. dyspnea, edema, light headedness, other Gastrointestinal: denies: nausea, vomiting, abdominal pain, diarrhea, constipation, melena, hematochezia, other - Medication Medications: Active Medications Generic Name Dose Route Start Last Admin Trade Name Freq PRN Reason Stop Dose Admin Alprazolam 0.5 mg 11/12/19 15:40 11/12/19 21:17 Xanax PO 0.5 mg BID PRN Administration Anxiety Aspirin 81 mg 11/13/19 09:00 11/13/19 09:39 Ecotrin PO 81 mg DAILY ROMEL Administration Clopidogrel Bisulfate 75 mg 11/13/19 09:00 11/13/19 09:39 Plavix PO 75 mg DAILY ROMEL Administration Enoxaparin Sodium 40 mg 11/13/19 09:00 11/13/19 09:39 Lovenox SC 40 mg 0900 ROMEL Administration Finasteride 5 mg 11/13/19 09:00 11/13/19 09:39 Proscar PO 5 mg DAILY ROMEL Administration Sodium Chloride 1,000 mls @ 100 mls/hr 11/12/19 15:45 11/13/19 12:50 Normal Saline 0.9% IV 1,000 mls .Q10H ROMEL Administration Meropenem 1 gm/ Device 50 mls @ 100 mls/hr 11/12/19 22:00 11/13/19 15:28 IVPB 50 mls Q8HR ROMEL Administration Polyethylene Glycol 17 gm 11/13/19 09:00 11/13/19 09:40 Miralax PO 17 gm BID ROMEL Administration - Exam Neck: negative: supple, symmetric, no JVD, no thyromegaly, no lymphadenopathy, no carotid bruit, JVD Heart: negative: RRR, no murmur, no gallops, no rubs, normal peripheral pulses, irregular, diminshed peripheral pulses, murmur present, II/IV, III/IV Respiratory: negative: CTAB, no wheezes, no rales, no ronchi, normal chest expansion, no tachypnea, normal percussion, rales, rhonchi, tachypneic, wheezes Gastrointestinal: negative: soft, non-tender, non-distended, normal bowel sounds , no palpable masses, no hepatomegaly, no splenomegaly, no bruit, no guarding, no rigidity, tender to palpation, distended, diminished bowl sounds, voluntary guarding Hosp A/P (1) Pancreatitis Code(s): K85.90 - ACUTE PANCREATITIS WITHOUT NECROSIS OR INFECTION, UNSP Status: Acute (2) UTI (urinary tract infection) Status: Acute (3) Sepsis Code(s): A41.9 - SEPSIS, UNSPECIFIED ORGANISM Status: Acute (4) Hyponatremia Code(s): E87.1 - HYPO-OSMOLALITY AND HYPONATREMIA Status: Chronic (5) Liver cancer Code(s): C22.9 - MALIG NEOPLASM OF LIVER, NOT SPECIFIED PRIMARY OR SEC Status: Chronic - Plan pt tolerating oral diet, no abdomen pain. will continue to add prn stool softeners. gi consulted. will continue iv abx for now. will continue iv fluids for now.
--- NOTE | 2019-11-13 19:49 | CON ---
DATE OF CONSULTATION: 11/13/2019 REASON FOR CONSULTATION: Abdominal pain and possible pancreatitis after a Y90 embolization of hepatoma on 11/10/2019. HISTORY OF PRESENT ILLNESS: Mr. Deng is a 79-year-old who has hepatocellular carcinoma. This developed in the setting of cirrhosis. He had a history of hepatitis C, which was eradicated many years ago and hepatoma was found on surveillance screening. He was treated initially with Y90 and then had some residual tumor. This was treated with radiofrequency ablation. More recently, 3 small tumors were seen on MRI in July. He had Y90 ablation. The largest of these on 11/10/2019. After that I had seen him last week actually a few days before that he was feeling well except for complaints of obstipation and irregular stool function. This was felt likely related to diverticular disease. He had a remote history of screening colonoscopy. After his procedure on Wednesday, he had some issues with urinary retention, which was relieved before he was discharged. He was still groggy when he left. When he got home, he began to have some fever up to 101, did not feel well, so went to the emergency room at [facility]. There temperature was 99.3, stable vital signs with a pulse of 89. He has been found to have a little bit of leukocytosis. His lactic acid was less than 1. His white count was 17,000, hemoglobin is 13, platelet count is 287. Comprehensive metabolic profile is known for AST and ALT of 56 and 25 and bilirubin 1.4. His albumin was 4. Renal function was normal. Troponins were negative. He had a CAT scan that showed diverticulosis diffusely and the findings of a mild inflammation of pancreas since a little bit of fluid at the splenic hilum. He was transferred here for further evaluation and admission. He reports he feels a little better today, although he is still not eating much and feels bloated. He did have an enema for his constipation. PAST MEDICAL HISTORY: 1. Coronary artery disease, apparently had a coronary artery stent placed recently when he had a stress test and the [facility] is part of his liver transplant evaluation. He is going to be on Plavix for 6 months, he reports. 2. History of hepatoma, previously treated with Y90 and then radiofrequency ablation. He was on Lenvima in 2019 for a while and he got severe hypertension and had to be stopped. 3. Medical history also includes hepatitis C eradicated with Harvoni, BPH, reflux, anxiety disorder, chronic hyponatremia, cirrhosis. PAST SURGICAL HISTORY: Laparoscopic cholecystectomy, vasectomy, upper and lower endoscopies, and the chemoembolization and radiofrequency ablation of liver tumor. SOCIAL HISTORY: Negative for alcohol, drugs, or tobacco. Lives with his daughter and grandchildren. ALLERGIES: HYDROCHLOROTHIAZIDE, PENICILLIN, AND SULFA. MEDICATIONS: At home are: 1. Alprazolam. 2. Omeprazole. 3. Plavix. 4. Aspirin. 5. Amlodipine. 6. Finasteride. 7. Flomax. 8. Lisinopril. 9. Rosuvastatin. 10. Calcium. 11. MiraLAX. 12. Clonidine. REVIEW OF SYSTEMS: Negative for dysphagia, odynophagia, some of the pain did radiate to his back. He has had no melena, hematochezia, or hematemesis. FAMILY HISTORY: Mother had lung cancer. MEDICATIONS HERE: 1. Xanax p.r.n. 2. Norvasc. 3. Aspirin 81. 4. Clonidine. 5. Plavix 75. 6. Lovenox 40. 7. Finasteride. 8. Lisinopril. 9. Meropenem. 10. MiraLAX. 11. Senokot. PHYSICAL EXAMINATION: GENERAL: The patient is resting comfortably in bed. He is in no distress. VITAL SIGNS: Temperature 98, pulse 89, blood pressure 153/75, O2 saturation 93 % on room air. LUNGS: Clear. HEART: Regular. ABDOMEN: Soft. Slightly protuberant. There is no shifting dullness or fluid wave. Bowel sounds are quiescent. There is no rebound. There is no guarding. There is no palpable hepatosplenomegaly. EXTREMITIES: No clubbing, cyanosis, or edema. LABORATORY STUDIES: White count down to 16.3 from 21 yesterday, hemoglobin 11.8 , platelet count 218, 86% segs. INR was 1 yesterday. Sodium 128, potassium 3.9, BUN and creatinine are 11 and 0.65. Bilirubin was 1.8 with an AST of 45 yesterday. Lipase was 267. ASSESSMENT: This is a gentleman, who has developed abdominal pain and fever after Y90 chemoembolization of hepatoma on Wednesday. He has a little bit of fluid in the abdomen and some haziness around his pancreas and mildly elevated lipase. The pain is in the upper abdomen. Likely, he had some delivery of Y90 to area other than the tumor either in the stomach or pancreatic or upper abdominal region. The labs are nonspecific as is the imaging. This is a known complication of Y90 and ultimately ends up embolization of reactive microspheres into nontumor tissue. It seems that he has adequate hepatic function, has not developed any signs of hepatic necrosis or failure. This could be either gastric related or pancreatic related, less likely small-bowel related. RECOMMENDATIONS: 1. Advance diet slowly. 2. Agree with antibiotics. 3. We would add IV PPI and recheck all labs tomorrow. Hopefully, if he continues to improve, he can go home in the next 24 to 48 hours. Job ID: [id number] [facility] CENTERDesirae
[2019-11-13] MEDS: Lisinopril 20 MG TAB PO SCH (20:04)
[2019-11-13] MEDS: Fioricet 325/50/40 mg Tablet PO PRN (21:14)
[2019-11-14] MEDS: ALPRAZolam 0.5 MG TAB PO PRN ×2 (00:38→22:53)
[2019-11-14] MEDS: MEROPENEM 1 GM/50 ML 1 GM in Premix Bag 1 BAG IVPB SCH ×3 (05:19→22:51)
[2019-11-14 06:24] LABS: ALT (SGPT) 23 U/L (8-55); AST (SGOT) 24 U/L (5-34); Albumin 3.1 g/dL (3.4-4.8); Alkaline Phosphatase 70 U/L (40-110); Anion Gap 9 mmol/L (10-20); BUN (Urea Nitrogen) 12 mg/dL (8.4-25.7); Bilirubin, Total 1.6 mg/dL (0.2-1.2); Calc. Creatinine Clearance 95 mL/min (70-130); Calcium 7.7 mg/dL (7.8-10.44); Carbon Dioxide 21 mmol/L (23-31); Chloride 102 mmol/L (98-107); Estimated GFR-MDRD Greater than 90; Globulin 2.4 g/dL (2.4-3.5); Glucose 93 mg/dL (83-110); Lipase 55 U/L (8-78); Potassium 3.7 mmol/L (3.5-5.1); Protein, Total 5.5 g/dL (5.8-8.1); Sodium 128 mmol/L (136-145)
[2019-11-14 06:48] LABS: Hemoglobin 10.4 g/dL (14.0-18.0); Mean Corpuscular Hemoglobin 33.5 pg (27.0-31.0); Mean Corpuscular Volume 98.4 fL (78.0-98.0); Mean Platelet Volume 8.4 fL (7.4-10.4); Platelet Count 200 thou/uL (130-400); RBC Distribution Width 12.7 % (11.5-14.5); White Blood Cell (WBC) Count 12.9 thou/uL (4.8-10.8)
[2019-11-14 08:05] LABS: Band 4 % (5-11); Lymphocytes 11 % (21-51); MDiff Complete? YES; Monocytes 2 % (0-10); Neutrophil 83 % (42-75); Platelet Morphology Comment Appears Adequate; Polychromasia SLIGHT = 2-3 cells (100X) (0-2/hpf)
[2019-11-14] MEDS ORDERED: Lisinopril 20 MG TAB PO SCH ×2 (09:00)
[2019-11-14] MEDS ORDERED: Amlodipine 5 MG TAB PO SCH (09:00)
[2019-11-14] MEDS: Aspirin 81 mg Enteric Coated Tablet PO SCH (10:10)
[2019-11-14] MEDS: Amlodipine 5 MG TAB PO SCH (10:10)
[2019-11-14] MEDS: Clopidogrel Bisulfate 75 MG TAB PO SCH (10:12)
[2019-11-14] MEDS: Enoxaparin Sodium 40 MG/0.4 ML SYRINGE SC SCH (10:12)
[2019-11-14] MEDS: Pantoprazole 40 MG VIAL IVP SCH (10:12)
[2019-11-14] MEDS: Finasteride 5 MG TAB PO SCH (10:12)
[2019-11-14] MEDS: Polyethylene Glycol 3350 17 GM Packet PO SCH ×2 (10:13→20:30)
[2019-11-14] MEDS: Sodium Chloride 0.9% 1,000 ML IV SCH ×2 (11:18→22:52)
--- NOTE | 2019-11-14 19:57 | PRG ---
DATE OF SERVICE: 11/14/2019 SUBJECTIVE: Mr. Deng better. His fever has resolved. He has had a little bit of bowel movements. OBJECTIVE: VITAL SIGNS: Temperature is 98, T-max 98, and blood pressure 141/82. ABDOMEN: Soft, nontender, and slightly protuberant. LUNGS: Clear. HEART: Regular rhythm without murmurs. ABDOMEN: Soft and nontender. LABORATORY DATA: White count 12 down from 16 on the 17th, hemoglobin is 10.4, and platelet count is 200. Sodium 128, potassium 3.7, BUN and creatinine 12 and 0.6, calcium 7.7, lipase is 55, and AST and ALT are 24 and 23. ASSESSMENT: 1. Abdominal pain after Y90 infusion with elevation of lipase and some mild inflammation around the pancreas on CT. This is likely effective some radioactive beads are getting away from where the tumor is and causing some radiation inflammation. Lipase elevation was nonspecific, is now resolved. 2. Obstipation, taking MiraLAX p.r.n. PLAN: We will advance diet to regular if he feels like eating that low residue. Continue PPI therapy. Monitor labs. Hopefully can go home in 1 to 2 days. Job ID: [id number]
--- NOTE | 2019-11-14 20:01 | PDOC.HOSPP ---
- Subjective Encounter Date: 11/14/19 Encounter Time: 10:30 Subjective: pt up in bed feels well. - Objective Vital Signs & Weight: Vital Signs (12 hours) Temp Pulse Resp BP BP Pulse Ox 11/14/19 19:36 100.1 F H 96 18 149/64 H 93 L 11/14/19 10:10 88 141/82 H 11/14/19 08:04 98.9 F 83 19 151/80 H 94 L Weight Weight 155 lb I&O: 11/13/19 11/14/19 11/15/19 06:59 06:59 06:59 Intake Total 2120 1440 Output Total 125 Balance 1994 1440 Result Diagrams: 11/14/19 05:08 11/14/19 05:08 Hospitalist ROS - Review of Systems Cardiovascular: denies: chest pain, palpitations, orthopnea, paroxysmal noc. dyspnea, edema, light headedness, other Gastrointestinal: denies: nausea, vomiting, abdominal pain, diarrhea, constipation, melena, hematochezia, other Genitourinary: denies: dysuria, frequency, incontinence, hematuria, retention, other - Medication Medications: Active Medications Generic Name Dose Route Start Last Admin Trade Name Freq PRN Reason Stop Dose Admin Acetaminophen/Butalbital/Caffeine 1 tab 11/13/19 13:28 11/13/19 21:14 Fioricet PO 11/18/19 13:29 1 tab Q4H PRN Administration Headache Alprazolam 0.5 mg 11/12/19 15:40 11/14/19 00:38 Xanax PO 0.5 mg BID PRN Administration Anxiety Amlodipine Besylate 5 mg 11/14/19 09:00 11/14/19 10:10 Norvasc PO 5 mg DAILY ROMEL Administration Aspirin 81 mg 11/13/19 09:00 11/14/19 10:10 Ecotrin PO 81 mg DAILY ROMEL Administration Clopidogrel Bisulfate 75 mg 11/13/19 09:00 11/14/19 10:12 Plavix PO 75 mg DAILY ROMEL Administration Enoxaparin Sodium 40 mg 11/13/19 09:00 11/14/19 10:12 Lovenox SC 40 mg 0900 ROMEL Administration Finasteride 5 mg 11/13/19 09:00 11/14/19 10:12 Proscar PO 5 mg DAILY ROMEL Administration Sodium Chloride 1,000 mls @ 100 mls/hr 11/12/19 15:45 11/14/19 11:18 Normal Saline 0.9% IV 1,000 mls .Q10H ROMEL Administration Meropenem 1 gm/ Device 50 mls @ 100 mls/hr 11/12/19 22:00 11/14/19 15:04 IVPB 50 mls Q8HR ROMEL Administration Lisinopril 40 mg 11/13/19 21:00 11/13/19 20:04 Zestril PO 40 mg HS ROMEL Administration Pantoprazole Sodium 40 mg 11/14/19 09:00 11/14/19 10:12 Protonix IVP 40 mg DAILY ROMEL Administration Polyethylene Glycol 17 gm 11/13/19 09:00 11/14/19 10:13 Miralax PO 17 gm BID ROMEL Administration Sodium Chloride 10 ml 11/13/19 21:00 11/14/19 10:07 Flush - Normal Saline IVF Not Given Q12HR ROMEL - Exam Neck: negative: supple, symmetric, no JVD, no thyromegaly, no lymphadenopathy, no carotid bruit, JVD Heart: negative: RRR, no murmur, no gallops, no rubs, normal peripheral pulses, irregular, diminshed peripheral pulses, murmur present, II/IV, III/IV Respiratory: negative: CTAB, no wheezes, no rales, no ronchi, normal chest expansion, no tachypnea, normal percussion, rales, rhonchi, tachypneic, wheezes Hosp A/P (1) Pancreatitis Code(s): K85.90 - ACUTE PANCREATITIS WITHOUT NECROSIS OR INFECTION, UNSP Status: Acute (2) UTI (urinary tract infection) Status: Acute (3) Sepsis Code(s): A41.9 - SEPSIS, UNSPECIFIED ORGANISM Status: Acute (4) Hyponatremia Code(s): E87.1 - HYPO-OSMOLALITY AND HYPONATREMIA Status: Chronic (5) Liver cancer Code(s): C22.9 - MALIG NEOPLASM OF LIVER, NOT SPECIFIED PRIMARY OR SEC Status: Chronic - Plan pt tolerating oral diet, no abdomen pain. will continue to add prn stool softeners. gi consulted. will continue iv abx for now. will continue iv fluids for now. 11/14 pt up in bed feels well, will advance diet. will stop fluids once he is able to eat. will change abx to po in am.
[2019-11-14] MEDS: Lisinopril 20 MG TAB PO SCH (20:30)
[2019-11-14] MEDS: Fioricet 325/50/40 mg Tablet PO PRN (20:30)
[2019-11-15] MEDS: MEROPENEM 1 GM/50 ML 1 GM in Premix Bag 1 BAG IVPB SCH ×2 (05:36→15:09)
[2019-11-15 06:19] LABS: #Eosinphils 0.3 thou/uL (0.0-0.7); #Lymphocytes 0.6 thou/uL (1.20-3.40); #Monocytes 0.8 thou/uL (0.11-0.59); #Neutrophils 7.6 thou/uL (1.40-6.50); %Basophils 0.3 % (0.0-1.0); %Eosinophils 2.8 % (0.0-10.0); %Lymphocytes 6.8 % (21.0-51.0); %Monocytes 8.7 % (0.0-10.0); %Neutrophils 81.5 % (42.0-75.0); Hemoglobin 9.4 g/dL (14.0-18.0); Mean Corpuscular HGB CONC 33.2 g/dL (32.0-36.0); Mean Corpuscular Hemoglobin 32.7 pg (27.0-31.0); Mean Corpuscular Volume 98.5 fL (78.0-98.0); Mean Platelet Volume 7.6 fL (7.4-10.4); Platelet Count 197 thou/uL (130-400); RBC Distribution Width 12.7 % (11.5-14.5); Red Blood Cell (RBC) Count 2.87 mill/uL (4.70-6.10); White Blood Cell (WBC) Count 9.3 thou/uL (4.8-10.8)
[2019-11-15 06:45] LABS: ALT (SGPT) 26 U/L (8-55); AST (SGOT) 31 U/L (5-34); Albumin 2.8 g/dL (3.4-4.8); Alkaline Phosphatase 73 U/L (40-110); Anion Gap 10 mmol/L (10-20); BUN (Urea Nitrogen) 9 mg/dL (8.4-25.7); Bilirubin, Total 1.2 mg/dL (0.2-1.2); Calc. Creatinine Clearance 99 mL/min (70-130); Calcium 7.5 mg/dL (7.8-10.44); Carbon Dioxide 22 mmol/L (23-31); Chloride 103 mmol/L (98-107); Estimated GFR-MDRD Greater than 90; Globulin 2.3 g/dL (2.4-3.5); Glucose 97 mg/dL (83-110); Potassium 3.6 mmol/L (3.5-5.1); Protein, Total 5.1 g/dL (5.8-8.1); Sodium 131 mmol/L (136-145)
[2019-11-15] MEDS: Clopidogrel Bisulfate 75 MG TAB PO SCH (08:52)
[2019-11-15] MEDS: Amlodipine 5 MG TAB PO SCH (08:55)
[2019-11-15] MEDS: Finasteride 5 MG TAB PO SCH (08:56)
[2019-11-15] MEDS: Aspirin 81 mg Enteric Coated Tablet PO SCH (08:56)
[2019-11-15] MEDS: Enoxaparin Sodium 40 MG/0.4 ML SYRINGE SC SCH (08:59)
[2019-11-15] MEDS: Pantoprazole 40 MG VIAL IVP SCH (09:02)
[2019-11-15] MEDS: Polyethylene Glycol 3350 17 GM Packet PO SCH ×2 (09:02→19:10)
[2019-11-15] MEDS: Sodium Chloride 0.9% 1,000 ML IV SCH ×2 (14:42→19:05)
--- NOTE | 2019-11-15 15:00 | PDOC.HOSPP ---
- Subjective Encounter Date: 11/15/19 Encounter Time: 10:15 Subjective: pt up in bed no complains, he is not eating much but has no n/v. - Objective Vital Signs & Weight: Vital Signs (12 hours) Temp Pulse Resp BP Pulse Ox 11/15/19 11:33 98.2 F 11/15/19 08:55 78 11/15/19 04:16 98.1 F 78 18 147/69 H 92 L Weight Weight 155 lb I&O: 11/14/19 11/15/19 11/16/19 06:59 06:59 06:59 Intake Total 2119 1440 Output Total 125 Balance 1994 1440 Result Diagrams: 11/15/19 05:38 11/15/19 05:38 Hospitalist ROS - Review of Systems Respiratory: denies: cough, dry, shortness of breath, hemoptysis, SOB with excertion, pleuritic pain, sputum, wheezing, other Cardiovascular: denies: chest pain, palpitations, orthopnea, paroxysmal noc. dyspnea, edema, light headedness, other Gastrointestinal: denies: nausea, vomiting, abdominal pain, diarrhea, constipation, melena, hematochezia, other Genitourinary: denies: dysuria, frequency, incontinence, hematuria, retention, other - Medication Medications: Active Medications Generic Name Dose Route Start Last Admin Trade Name Freq PRN Reason Stop Dose Admin Acetaminophen/Butalbital/Caffeine 1 tab 11/13/19 13:28 11/14/19 20:30 Fioricet PO 11/18/19 13:29 1 tab Q4H PRN Administration Headache Alprazolam 0.5 mg 11/12/19 15:40 11/14/19 22:53 Xanax PO 0.5 mg BID PRN Administration Anxiety Amlodipine Besylate 5 mg 11/14/19 09:00 11/15/19 08:55 Norvasc PO 5 mg DAILY ROMEL Administration Aspirin 81 mg 11/13/19 09:00 11/15/19 08:56 Ecotrin PO 81 mg DAILY ROMEL Administration Clopidogrel Bisulfate 75 mg 11/13/19 09:00 11/15/19 08:52 Plavix PO 75 mg DAILY ROMEL Administration Enoxaparin Sodium 40 mg 11/13/19 09:00 11/15/19 08:59 Lovenox SC 40 mg 0900 ROMEL Administration Finasteride 5 mg 11/13/19 09:00 11/15/19 08:56 Proscar PO 5 mg DAILY ROMEL Administration Sodium Chloride 1,000 mls @ 100 mls/hr 11/12/19 15:45 11/15/19 14:42 Normal Saline 0.9% IV Not Given .Q10H ROMEL Lisinopril 40 mg 11/13/19 21:00 11/14/19 20:30 Zestril PO 40 mg HS ROMEL Administration Polyethylene Glycol 17 gm 11/13/19 09:00 11/15/19 09:02 Miralax PO Not Given BID ROMEL Sodium Chloride 10 ml 11/13/19 21:00 11/15/19 06:57 Flush - Normal Saline IVF Not Given Q12HR ROMEL - Exam Heart: negative: RRR, no murmur, no gallops, no rubs, normal peripheral pulses, irregular, diminshed peripheral pulses, murmur present, II/IV, III/IV Respiratory: negative: CTAB, no wheezes, no rales, no ronchi, normal chest expansion, no tachypnea, normal percussion, rales, rhonchi, tachypneic, wheezes Gastrointestinal: negative: soft, non-tender, non-distended, normal bowel sounds , no palpable masses, no hepatomegaly, no splenomegaly, no bruit, no guarding, no rigidity, tender to palpation, distended, diminished bowl sounds, voluntary guarding Extremities: negative: no cyanosis, no clubbing, no edema, 1+ LE edema, 2+ LE edema, clubbing Hosp A/P (1) Pancreatitis Code(s): K85.90 - ACUTE PANCREATITIS WITHOUT NECROSIS OR INFECTION, UNSP Status: Acute (2) UTI (urinary tract infection) Status: Acute (3) Sepsis Code(s): A41.9 - SEPSIS, UNSPECIFIED ORGANISM Status: Acute (4) Hyponatremia Code(s): E87.1 - HYPO-OSMOLALITY AND HYPONATREMIA Status: Chronic (5) Liver cancer Code(s): C22.9 - MALIG NEOPLASM OF LIVER, NOT SPECIFIED PRIMARY OR SEC Status: Chronic - Plan pt tolerating oral diet, no abdomen pain. will continue to add prn stool softeners. gi consulted. will continue iv abx for now. will continue iv fluids for now. 11/14 pt up in bed feels well, will advance diet. will stop fluids once he is able to eat. will change abx to po in am. 11/15 pt states that his allergy to penicillin was when he was rx penicillin when he was 31y/o and his skin was peeling in his fingers. He had no rash, respiratory symptoms. will change his abx to Augmentin.
[2019-11-15] MEDS: Amoxicillin/Potassium Clav 875 MG TAB PO SCH (16:33)
[2019-11-15] MEDS: Lisinopril 20 MG TAB PO SCH (20:14)
[2019-11-15] MEDS: ALPRAZolam 0.5 MG TAB PO PRN (20:16)
[2019-11-15] MEDS ORDERED: Amoxicillin/Potassium Clav 875 MG TAB PO SCH (21:00)
[2019-11-16] MEDS: Amoxicillin/Potassium Clav 875 MG TAB PO SCH ×2 (05:42→17:23)
[2019-11-16] MEDS ORDERED: Tamsulosin HCl 0.4 MG CAP PO SCH (06:00)
[2019-11-16 06:13] LABS: #Eosinphils 0.3 thou/uL (0.0-0.7); #Lymphocytes 0.7 thou/uL (1.20-3.40); #Monocytes 1.2 thou/uL (0.11-0.59); #Neutrophils 8.1 thou/uL (1.40-6.50); %Basophils 0.1 % (0.0-1.0); %Eosinophils 3.2 % (0.0-10.0); %Lymphocytes 7.1 % (21.0-51.0); %Monocytes 11.4 % (0.0-10.0); %Neutrophils 78.2 % (42.0-75.0); Hemoglobin 10.2 g/dL (14.0-18.0); Mean Corpuscular HGB CONC 34.4 g/dL (32.0-36.0); Mean Corpuscular Hemoglobin 33.6 pg (27.0-31.0); Mean Corpuscular Volume 97.7 fL (78.0-98.0); Mean Platelet Volume 7.1 fL (7.4-10.4); Platelet Count 229 thou/uL (130-400); RBC Distribution Width 12.5 % (11.5-14.5); Red Blood Cell (RBC) Count 3.04 mill/uL (4.70-6.10); White Blood Cell (WBC) Count 10.3 thou/uL (4.8-10.8)
--- NOTE | 2019-11-16 06:45 | PRG ---
DATE OF SERVICE: 11/15/2019 SUBJECTIVE: Mr. Deng has really not been out of bed yet. He is eating better though, his IV is hep-locked. OBJECTIVE: VITAL SIGNS: Temperature is 98, pulse 78, and blood pressure 147/69. ABDOMEN: Soft, nontender. LABORATORY DATA: White count 9.3, hemoglobin 9.4, and platelet count 197. Sodium 131, potassium 3.6. BUN and creatinine are 9 and 0.6. Liver function tests normal. ASSESSMENT: 1. Abdominal pain and probable mild pancreatitis after Y90 infusion. 2. Hepatocellular carcinoma, 3 lesions, status post Y90 infusion last week on Wednesday. 3. Hemoglobin dropping, but no signs of overt bleeding. 4. Apparently, he has urinary tract infection which is being treated with antibiotics, now is switched to oral medicine. PLAN: Advance diet. Ambulate. Hopefully home soon. He really has not been ambulating much. He needs to get up and walk some tomorrow with nurses before he goes anywhere. Job ID: [id number]
[2019-11-16] MEDS: Enoxaparin Sodium 40 MG/0.4 ML SYRINGE SC SCH (08:52)
[2019-11-16] MEDS: Polyethylene Glycol 3350 17 GM Packet PO SCH (08:52)
[2019-11-16] MEDS: Amlodipine 5 MG TAB PO SCH (08:53)
[2019-11-16] MEDS: Finasteride 5 MG TAB PO SCH (08:53)
[2019-11-16] MEDS: Aspirin 81 mg Enteric Coated Tablet PO SCH (08:53)
[2019-11-16] MEDS: Clopidogrel Bisulfate 75 MG TAB PO SCH (08:53)
[2019-11-16 11:16] VITALS: BP 129/70; TEMP 98.8
--- NOTE | 2019-11-16 18:17 | DIS ---
DATE OF ADMISSION: 11/12/2019 DATE OF DISCHARGE: 11/16/2019 DISCHARGE DIAGNOSES: 1. Sepsis. 2. Urinary tract infection from Enterococcus. 3. Liver cancers, recently Y90 procedure. 4. Hypertension. 5. Dehydration. 6. Chronic hyponatremia. 7. Pancreatitis. HOSPITAL COURSE: The patient is a very pleasant 79-year-old male, who initially presented to the hospital with generalized weakness and had a low-grade fever. The patient at this time went initially to a [facility] center, got blood drawn, which indicated leukocytosis; however, no clear infectious etiology. He did have a CT of abdomen and pelvis, which indicated pancreatitis. The patient at this time had a repeat blood work the following day and had a worsening leukocytosis. At this time, he was directed into the ER. The patient initially was started on broad-spectrum antibiotics and he was cultured up and a urine culture indicated Enterococcus. He was seen by GI for the pancreatitis. He had no symptoms of abdominal pain, nausea, or vomiting. His diet was advanced and he tolerated it without any difficulty. Given the fact that he recently had the Y90 procedure, the pancreatitis could be secondary to the procedure. He does have a history of penicillin allergy; however, when I spoke with him, the patient stated that he was prescribed penicillin when he was 31 years old and he had some sloughing of skin from his fingers, which he attributed to penicillin. He had no anaphylaxis. He had no welts. He had no respiratory problems. He had no rash. At this time given the fact that his urine indicated Enterococcus, he was initially on meropenem, which was transitioned to Augmentin. I chose Augmentin for any sort of urine or liver etiology. The patient did not have any side effects from the penicillin. He did well with 2 doses of Augmentin. However, the daughter was concerned. I did call her and spoke with her and I told her that if he starts having any symptoms of itching or any welts or any rash, she could give him Benadryl and also stop the medication and call the primary care. The patient is okay to be discharged home. He also was constipated when he came in. He is currently having bowel movements, however, just feels a little bloated. HOME MEDICATIONS: Will be as the followin. Augmentin 875 one p.o. twice a day. 2. Protonix 40 mg daily. 3. MiraLAX 17 g twice a day. 4. Finasteride 5 mg daily. 5. Xanax 0.5 b.i.d. p.r.n. 6. Lisinopril 40 mg daily. 7. Omeprazole 20 mg daily. 8. Norvasc 5 mg daily. 9. Tamsulosin one capsule p.o. daily. 10. Aspirin 81 mg daily. 11. Clopidogrel 75 mg daily. 12. Rosuvastatin 20 mg daily. 13. Clonidine 0.1 as needed. PHYSICAL EXAMINATION: VITAL SIGNS: Temperature 98.8, pulse 80, respirations 18, O2 saturation 95% on room air, blood pressure 129/70. GENERAL: He is awake, alert, and oriented x3, does not appear in pain or distress. CV: S1 and S2 present. No murmurs, rubs, or gallops. ABDOMEN: Soft and nontender. Bowel sounds are present x2. DISPOSITION: The patient will be discharged home. FOLLOWUP: He will follow up with his primary and also with oncologist in [place]. PLAN: The patient's daughter was little concerned about patient having a dry cough. I advised her to continue to monitor. However, he is on lisinopril, which could be a possible reason for him to have the dry cough. I have asked her to keep an eye on him in regard to the cough. If it worsens or continues, possible discontinuing of the lisinopril is advisable. Job ID: [id number]
--- NOTE | 2019-11-16 19:21 | PRG ---
DATE OF SERVICE: 11/16/2019 SUBJECTIVE: Mr. Deng is feeling much better. He is eating. He has had no fever. He is tolerating the Augmentin. They put him on p.o. for his UTI. OBJECTIVE: VITAL SIGNS: Temperature max 100 on the 18th at 1900 hours and then it was 99 this morning at 7, and it is 98.8 at 1113. Pulse 80, blood pressure 129/70. GENERAL: He is having some bowel movements, but still feels a little bloated. He states he has had a little bit of a dry cough today. NECK: Supple. LUNGS: Clear. There is no wheezing or stridor. HEART: Regular rhythm. ABDOMEN: Soft, protuberant, nontender. EXTREMITIES: No clubbing, cyanosis, or edema. LABORATORY STUDIES: White count 10.3, hemoglobin 10.2, platelet count 229. Sodium 131, potassium 3.6, BUN and creatinine are 9 and 0.6, calcium 7.5, bilirubin 1.2. AST and ALT are 31 and 26, alkaline phosphatase 73, bilirubin is 1.2. Lipase on was 55, it was on admission. ASSESSMENT: 1. Hepatoma. 2. Status post injection in the tumor with subsequent abdominal pain and mild elevation of lipase and mild inflammation of the pancreas on CT. This is likely related to some extravasated or shunted Y90 that reached normal tissue and skipped the circulation directed at the tumor tissue. He does not seem to have any signs of bleeding or intestinal ulceration. The effect is mild. It seems he has improved markedly. He has no gallstones. RECOMMENDATIONS: He can go home with liquid diet. He is being treated for UTI by the primary service. I have asked him to follow up in the office in 2 weeks to recheck his labs. I have recommended he talk with his regrader in [place] just to let him know what happened as they may need to remap him before his next Y90 injection. Job ID: [id number]
== END 2019-11-16 18:19 | disposition home or self-care (01) | DRG 871 ==
LOC: ERS 10:41 → T4-A 18:33
PROVIDERS: ADMIT Internal Medicine; ATTEND Internal Medicine
DX: A41.9 Sepsis, unspecified organism (principal); K85.90 Acute pancreatitis without necrosis or infection, unspecified; E87.1 Hypo-osmolality and hyponatremia; C22.0 Liver cell carcinoma; K91.89 Other postprocedural complications and disorders of digestive system; N39.0 Urinary tract infection, site not specified; I25.10 Atherosclerotic heart disease of native coronary artery without angina pectoris; N40.0 Benign prostatic hyperplasia without lower urinary tract symptoms; F41.9 Anxiety disorder, unspecified; K59.00 Constipation, unspecified; K21.9 Gastro-esophageal reflux disease without esophagitis; B95.2 Enterococcus as the cause of diseases classified elsewhere; Y84.2 Radiological procedure and radiotherapy as the cause of abnormal reaction of the patient, or of later complication, without mention of misadventure at the time of the procedure; Z88.8 Allergy status to other drugs, medicaments and biological substances; Z95.5 Presence of coronary angioplasty implant and graft; Z90.49 Acquired absence of other specified parts of digestive tract; Z79.899 Other long term (current) drug therapy; Z79.82 Long term (current) use of aspirin; Z79.02 Long term (current) use of antithrombotics/antiplatelets; Z88.0 Allergy status to penicillin; Z88.2 Allergy status to sulfonamides
CPT/HCPCS: 36415; 71046; 80048; 80053; 81003; 81015; 83605; 83690; 85025; 85610; 85730; 87040; 87077; 87086; 87186; 87804; C9113; J0696; J1650; J2185; J3370; J7050

== ENCOUNTER 2020-10-31 04:19 | Inpatient (IN) | payer MEDICARE, BC ==
[2020-10-31] MEDS ORDERED: Ondansetron ODT 8 MG TAB ONE (04:51)
[2020-10-31 05:46] LABS: Hemoglobin 15.1 g/dL (14.0-18.0); Mean Corpuscular HGB CONC 31.4 g/dL (32.0-36.0); Mean Corpuscular Hemoglobin 29.6 pg (27.0-31.0); Mean Corpuscular Volume 94.5 fL (78.0-98.0); RBC Distribution Width 20.1 % (11.5-14.5); Red Blood Cell (RBC) Count 5.11 mill/uL (4.70-6.10); White Blood Cell (WBC) Count 13.8 thou/uL (4.8-10.8)
[2020-10-31 05:54] LABS: ALT (SGPT) 232 U/L (8-55); AST (SGOT) 181 U/L (5-34); Albumin 3.4 g/dL (3.4-4.8); Alkaline Phosphatase 329 U/L (40-110); Anion Gap 28 mmol/L (10-20); BUN (Urea Nitrogen) 104 mg/dL (8.4-25.7); Bilirubin, Total 17.3 mg/dL (0.2-1.2); Calc. Creatinine Clearance 0 mL/min (70-130); Calcium 9.4 mg/dL (7.8-10.44); Carbon Dioxide 15 mmol/L (23-31); Chloride 102 mmol/L (98-107); Globulin 2.9 g/dL (2.4-3.5); Glucose 93 mg/dL (83-110); Potassium 4.9 mmol/L (3.5-5.1); Protein, Total 6.3 g/dL (5.8-8.1); Sodium 140 mmol/L (136-145)
[2020-10-31 06:16] LABS: CKMB 2.8 ng/mL (0-6.6)
[2020-10-31 06:21] LABS: #Basophils 0.1 thou/uL (0.0-0.2); #Eosinphils 0.1 thou/uL (0.0-0.7); #Lymphocytes 1.2 thou/uL (1.20-3.40); #Monocytes 0.9 thou/uL (0.11-0.59); #Neutrophils 11.5 thou/uL (1.40-6.50); %Basophils 0.9 % (0.0-1.0); %Eosinophils 0.7 % (0.0-10.0); %Monocytes 6.2 % (0.0-10.0); %Neutrophils 83.3 % (42.0-75.0); MDiff Complete? YES; Mean Platelet Volume 10.3 fL (7.4-10.4); Platelet Count 101 thou/uL (130-400); Platelet Morphology Comment Appears Decreased; Target Cells SLIGHT = 2-5 cells (100X) (0-1/hpf)
--- NOTE | 2020-10-31 08:15 | RAD ---
PORTABLE CHEST 1 VIEW: Date: 10/31/2020 Time: 0524 hours HISTORY: Syncope. COMPARISON: 11/12/2019. FINDINGS: The heart size is normal. The aorta is tortuous. There is stable elevation of the right hemidiaphragm . No lobar consolidation, pneumothoraces, or pleural effusions are seen. IMPRESSION: No acute process. POS: OFF
[2020-10-31 09:21] LABS: Troponin I 0.128 ng/mL (< 0.028)
--- NOTE | 2020-10-31 11:31 | PDOC.HHP ---
[facility] History of Present Illness: This is a 80 year old male with history of liver cancer, hypertension, on avas tin and ticentric every three weeks who was brought to the hospital due to severe weakness. THe patient has been unable to eat any food since being discharged from [facility] . The patient is very hard of hearing so I am unable to obtain an adequate history. Per daughter, she has been feeding him pureed foods, but he has no interest in eating. When he does eat, food gets stuck in his throat and he complains of odynophagia and doesn't like the taste. She states she has had difficulty sitting him up and today she was unable to stand him up to get to go to the bathroom. She called the ambulance and he was found to be hypotensive and advised to go to the ER. The patient does have mild diffuse abdominal pain. The last time he vomited was last week. He has had only small bowel movements. He denies fevers, chills or cough. The patient was recently admitted at [facility] for evaluation of a liver transplant. This was cancelled when he was found to have extensive "blooming" of his cancer cells. THe patient had difficulty eating and was fed through PPN while there. He had paracentesis twice while at [facility] and had 2L drawn from his belly last Wednesday. His last immunotherapy treatment was October 01. The patient states he messaged his oncologist at [facility] who recommended that he consider getting TPN . Of note, he got his COVID 19 vaccine on Wednesday. ED Course: THe patient presented to the ER with BP 90 systolic, mild tachycardia with heart rate 104. Labs showed WBC of 13.8, creatinine 5.45, AST 181, ALT 232, ALP 329. Troponin was 0.130 and repeat was 0.128. BNP was 33.7. THe patient was given zofran and 1L of fluid and admitted for further workup. Chest X ray was normal. Allergies/Adverse Reactions: Allergy/AdvReac Type Severity Reaction Status Date / Time hydrochlorothiazide Allergy Verified 11/12/19 20:26 Penicillins Allergy Verified 07/28/15 16:24 Sulfa (Sulfonamide Allergy Verified 07/29/15 04:31 Antibiotics) Home Medications: Medication Instructions Recorded Confirmed Type ALPRAZolam [Xanax] 0.5 mg PO BID PRN 07/28/15 11/12/19 History Lisinopril 2 tab PO DAILY 07/28/15 11/12/19 History Finasteride 5 mg PO DAILY 01/17/19 11/12/19 History Amlodipine [Norvasc] 5 mg PO DAILY #30 tab 01/19/19 11/12/19 Rx cloNIDine [Catapres] 0.1 mg PO Q6H PRN #30 tab 01/19/19 11/12/19 Rx Acetaminophen [Mapap] 500 mg PO Q6HR PRN 11/12/19 11/12/19 History Aspirin 81 mg PO DAILY 11/12/19 11/12/19 History Chlorhexidine Gluconate 15 ml SSP BID PRN 11/12/19 11/12/19 History Clopidogrel Bisulfate [Clopidogrel] 75 mg PO DAILY 11/12/19 11/12/19 History Loratadine [Claritin] 10 mg PO DAILY PRN 11/12/19 11/12/19 History Rosuvastatin [Crestor] 20 mg PO DAILY 11/12/19 11/12/19 History Tamsulosin HCl [Flomax] 1 cap PO DAILY 11/12/19 11/12/19 History Amoxicillin/Potassium Clav 875 mg PO 0500,1700 #20 tab 11/16/19 Rx [Augmentin] Pantoprazole [Protonix] 40 mg PO DAILY #30 tab 11/16/19 Rx Polyethylene Glycol 3350 [Miralax] 17 gm PO BID #14 pk 11/16/19 Rx Comments: Aspirin 81 mg daily Protonix Vitamin D 3 Finasteride 5 mg Creon Megestrol 400 mg/10 ml Claritin 10 mg daily Praluent 75 injector pen Zofran 8 mg prn Triamcinolone cream Tylenol 500 mg q6 hours Immunotherapy: tecentriq, bevacizumab Past History: PMHx: Hepatitis C treated 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 He hasn't had alcohol since he was 41 (never heavy). Hospitalist JUANITA MARTIN Constitutional: denies: fever, chills Eyes: denies: pain, vision change ENT: denies: ear pain, ear discharge Respiratory: denies: cough, dry, shortness of breath Cardiovascular: denies: chest pain, palpitations, orthopnea Gastrointestinal: reports: nausea, abdominal pain. denies: diarrhea Genitourinary: denies: dysuria, frequency Musculoskeletal: denies: foot pain Skin: denies: rash, lesions Neurological: denies: weakness, numbness Hospitalist Exam General Appearance: NAD, awake alert General - other findings: severe cachexia Eye: PERRL, anicteric sclera ENT: normocephalic atraumatic, no oropharyngeal lesions Neck: no JVD Heart: RRR, no murmur, no gallops, no rubs Respiratory: CTAB, no wheezes, no rales, no ronchi Gastrointestinal: soft, non-tender, non-distended, normal bowel sounds, no hepatomegaly Extremities: no cyanosis, no clubbing, no edema Skin: normal turgor, no lesions, no rashes Neurological: cranial nerve grossly intact, normal sensation to touch, no weakness Musculoskeletal: normal tone, normal strength, no muscle wasting Psychiatric: normal affect, normal behavior, A&O x 3 Hospitalist Results Result Diagrams: 10/31/20 05:10 10/31/20 05:10 Lab results: Laboratory Last Values WBC 13.8 thou/uL (4.8-10.8) H 10/31/20 05:10 RBC 5.11 mill/uL (4.70-6.10) 10/31/20 05:10 Hgb 15.1 g/dL (14.0-18.0) 10/31/20 05:10 Hct 48.3 % (42.0-52.0) 10/31/20 05:10 MCV 94.5 fL (78.0-98.0) 10/31/20 05:10 MCH 29.6 pg (27.0-31.0) 10/31/20 05:10 MCHC 31.4 g/dL (32.0-36.0) L 10/31/20 05:10 RDW 20.1 % (11.5-14.5) H 10/31/20 05:10 Plt Count 101 thou/uL (130-400) L 10/31/20 05:10 MPV 10.3 fL (7.4-10.4) 10/31/20 05:10 Neutrophils % 83.3 % (42.0-75.0) H 10/31/20 05:10 Neutrophils % (Manual) Not Reportable 10/31/20 05:10 Lymphocytes % 9.0 % (21.0-51.0) L 10/31/20 05:10 Monocytes % 6.2 % (0.0-10.0) 10/31/20 05:10 Eosinophils % 0.7 % (0.0-10.0) 10/31/20 05:10 Basophils % 0.9 % (0.0-1.0) 10/31/20 05:10 Neutrophils # 11.5 thou/uL (1.40-6.50) H 10/31/20 05:10 Lymphocytes # 1.2 thou/uL (1.20-3.40) 10/31/20 05:10 Monocytes # 0.9 thou/uL (0.11-0.59) H 10/31/20 05:10 Eosinophils # 0.1 thou/uL (0.0-0.7) 10/31/20 05:10 Basophils # 0.1 thou/uL (0.0-0.2) 10/31/20 05:10 Plt Morphology Comment Appears Decreased L 10/31/20 05:10 Target Cells SLIGHT = 2-5 cells (100X) (0-1/hpf) 10/31/20 05:10 Sodium 140 mmol/L (136-145) 10/31/20 05:10 Potassium 4.9 mmol/L (3.5-5.1) 10/31/20 05:10 Chloride 102 mmol/L (98-107) 10/31/20 05:10 Carbon Dioxide 15 mmol/L (23-31) L 10/31/20 05:10 Anion Gap 28 mmol/L (10-20) H 10/31/20 05:10 BUN 104 mg/dL (8.4-25.7) H 10/31/20 05:10 Creatinine 5.45 mg/dL (0.7-1.3) H 10/31/20 05:10 Estimated GFR (MDRD) 10 10/31/20 05:10 Glucose 93 mg/dL (83-110) 10/31/20 05:10 Calcium 9.4 mg/dL (7.8-10.44) 10/31/20 05:10 Total Bilirubin 17.3 mg/dL (0.2-1.2) H 10/31/20 05:10 AST 181 U/L (5-34) H 10/31/20 05:10 ALT 232 U/L (8-55) H 10/31/20 05:10 Alkaline Phosphatase 329 U/L (40-110) H 10/31/20 05:10 CK-MB (CK-2) 2.8 ng/mL (0-6.6) 10/31/20 05:10 Troponin I 0.128 ng/mL (< 0.028) H 10/31/20 08:38 B-Natriuretic Peptide 33.7 pg/mL (0-100) 10/31/20 05:10 Serum Total Protein 6.3 g/dL (5.8-8.1) 10/31/20 05:10 Albumin 3.4 g/dL (3.4-4.8) 10/31/20 05:10 Globulin 2.9 g/dL (2.4-3.5) 10/31/20 05:10 Albumin/Globulin Ratio 1.2 g/dL (1.2-2.2) 10/31/20 05:10 Additional comment: EKG : sinus tachycardia Chest Xray: normal Hospitalist H&P A/P Plan: This is a 80 year old male patient with past medical history of liver cancer who presented to the hospital with failure to thrive #Failure to thrive likely secondary to liver cancer #Severe Dehydration #Transaminitis #Acute renal failure - patient is extremely dehydrated and is not eating. Possibly may need TPN. He was deemed not candidate for PEG tube at [facility]. Will consult GI due to worsening odynophagia, dysphagia worsening transaminitis - creatinine is up to 5.95, likely from severe dehydration. Will start IV fluids and consult nephrology . Will check UA - will consult oncology regarding liver cancer, possibly may no longer be a good candidate for further treatment. Will consult palliative care as well #Severe Protein Calorie Malnutrition - will consult dietary #Leukocytosis - WBC 13.8, likely reactive. Chest Xray normal. Will monitor #CAD s/p PCI to LAD - continue aspirin #Troponin - likely type II supply demand - likely supply demand ischemia. Trop 0.128. Will check ECHO
[2020-10-31 11:35] LABS: Troponin I 0.138 ng/mL (< 0.028)
[2020-10-31] MEDS ORDERED: Sodium Chloride 0.9% 1,000 ML IV SCH (11:45)
[2020-10-31] MEDS ORDERED: Loratadine 10 MG TAB PO PRN (12:39)
[2020-10-31 16:56] LABS: SARS-CoV-2 PCR by NAA Not Detected (NotDetected)
[2020-10-31 17:20] VITALS: BMI 16.8
--- NOTE | 2020-10-31 17:46 | PDOC.EVN ---
Event Note - Event Note Event Note: Discussed with the patient's oncologist who agreed patient is probably dehydrated. She stated his liver cancer has responded well to treatments and doesn't understand why he has failure to thrive. She stated she will hold his next few treatments and agreed with IV fluids and recommended TPN since he is not a candidate for PEG tube
[2020-10-31] MEDS: Sodium Bicarbonate 150 MEQ in Dextrose 5% in Water 1,000 ML IV SCH (21:19)
--- NOTE | 2020-11-01 00:18 | CON ---
DATE OF CONSULTATION: 10/31/2020 HISTORY OF PRESENT ILLNESS: The patient is a 80-year-old male with a history of hepatocellular cancer, who has had progressive deterioration over the last several months with very little p.o. intake, anorexia, and cachexia. He also has some trouble swallowing. The patient's daughter tells me that he underwent an EGD in May, which was negative per Dr. Marin. He was recently hospitalized in a [place] facility, where he underwent TPN and IV fluids, paracentesis. No etiology for his failure to thrive was noted. The daughter brought him in because he was unable to ambulate to the bathroom. PAST MEDICAL HISTORY: Includes hepatocellular cancer, history of hepatitis C, seizure secondary to hyponatremia. PAST SURGICAL HISTORY: Includes cholecystectomy, cataract surgery, Y90 liver radioembolization, liver radiofrequency ablation, pancreatitis. HOME MEDICATIONS: Include: 1. Catapres. 2. Flomax. 3. Crestor. 4. MiraLAX. 5. Protonix. 6. Claritin. 7. Lisinopril. 8. Plavix. 9. Aspirin. 10. Norvasc. 11. Xanax. Presently, he is on 1. Aspirin 81 mg p.o. daily. 2. Claritin 10 mg p.o. daily p.r.n. 3. Protonix 40 mg p.o. daily. 4. Flomax 0.4 mg p.o. daily. ALLERGIES: INCLUDE HYDROCHLOROTHIAZIDE, PENICILLIN, AND SULFA. SOCIAL HISTORY: Does not smoke or drink. FAMILY HISTORY: Negative. REVIEW OF SYSTEMS: Noncontributory. PHYSICAL EXAMINATION: GENERAL: Shows a severely cachectic, jaundiced male, in no acute distress , VITAL SIGNS: Temperature 97.5, pulse 104, respiratory rate 20, blood pressure 102/69. HEENT: Shows poor dentition. NECK: Supple. CHEST: Clear. CARDIOVASCULAR: Regular rate and rhythm. ABDOMEN: Slightly protuberant. He has a positive fluid wave. No hepatosplenomegaly is appreciable. RECTAL: Deferred. EXTREMITIES: Normal. LABORATORY DATA: Shows a white blood cell count of 13.8, hemoglobin 15, hematocrit 48.3. Chemistries significant for a total bilirubin 17.3, AST 181, ALT of 232, alkaline phosphatase of 329, BUN is 104, creatinine 5.45, CO2 of 15. COVID is negative. ASSESSMENT: 1. Failure to thrive of unknown etiology - I suspect this is a progression of his hepatocellular cancer, even though the family has been told that his cancer is "stable.". 2. Renal insufficiency - probably secondary to severe dehydration. 3. Worsening LFT elevation - looking at his laboratory from [facility] in [place], his liver tests were similar to this result. I suspect this is a combination of his dehydration, acute renal failure, and progression of his hepatocellular cancer. 4. Ascites - cannot treat this at this time secondary to his renal insufficiency. 5. Renal insufficiency. RECOMMENDATIONS: 1. Slow, gentle rehydration, which I believe will improve his renal function. 2. Speech pathology and possible modified barium swallow to assess his swallowing. 3. Hold Avastin and immunotherapy at this time. Job ID: [id number]
[2020-11-01] MEDS: Sodium Bicarbonate 150 MEQ in Dextrose 5% in Water 1,000 ML IV SCH ×3 (05:13→16:28)
[2020-11-01 05:54] LABS: Anion Gap 24 mmol/L (10-20)
[2020-11-01 05:56] LABS: Albumin 2.5 g/dL (3.4-4.8); BUN (Urea Nitrogen) 117 mg/dL (8.4-25.7); BUN/Creatinine Ratio 22.24; Calc. Creatinine Clearance 8 mL/min (70-130); Calcium 8.3 mg/dL (7.8-10.44); Carbon Dioxide 17 mmol/L (23-31); Chloride 107 mmol/L (98-107); Glucose 135 mg/dL (83-110); Phosphorus 4.2 mg/dL (2.3-4.7); Potassium 4.9 mmol/L (3.5-5.1); Sodium 140 mmol/L (136-145)
--- NOTE | 2020-11-01 06:32 | CON ---
DATE OF CONSULTATION: REQUESTING PHYSICIAN: Amna Herrera MD REASON FOR CONSULTATION: Acute on chronic kidney disease. IMPRESSION: 1. Acute on chronic kidney disease. This is likely hemodynamically mediated in the context of hypotension and prerenal state. Not sure, if it is prolonged enough to result in acute tubular necrosis, which is a strong possibility at this point. 2. Cancer of the liver contributing to possible hepatorenal, but I doubt it at this point. 3. Metabolic acidosis in the context of problem #1. 4. uremic symptomatology. The patient with significant azotemia, possibly contributing to the patient's nausea and vomiting. PLAN: 1. We will focus on rehydrating this patient, will prefer a bicarb-based solution. 2. Renally dose all medications and avoid potentially nephrotoxic agents. 3. We will evaluate all the electrolytes to see the degree of renal dysfunction in this patient. 4. Further management will be dependent on the clinical course. HISTORY OF PRESENT ILLNESS: History is that of a 80-year-old gentleman with a history of hepatic carcinoma. Recently, did undergo workup for hepatic transplant, but found not to be a candidate, on treatment with Avastin and Tecentriq every three weeks. However, recently the patient seems now to be failing to thrive, not eating very well, having some difficulty with swallowing and progressively lethargic, found to be hypotensive by the EMS prior to presentation. On presentation, clinical evaluation did reveal profound azotemia with BUN above 100 and creatinine above 5 with significant evidence of metabolic acidosis. As a result of these findings, decision has been taken to involve Renal in the management of this case. PAST MEDICAL HISTORY: Significant for hypertension, liver carcinoma, hepatitis C, seizure, and BPH. MEDICATIONS: Reviewed and as documented on [employer]. SOCIAL HISTORY: Remote tobacco use. No alcohol. No illicit drug use. REVIEW OF SYSTEMS: The patient is very hard of hearing. LABORATORY INVESTIGATIONS: Significant for creatinine of 5.45 with BUN of 104 and bicarb of 15. PHYSICAL EXAMINATION: VITAL SIGNS: The patient noted with the following vital signs; afebrile, temperature 97.5, pulse 104, respiratory rate of 20, O2 saturation of 97%, and blood pressure 102/97. HEENT: Remarkable for conjunctival icterus. CARDIOVASCULAR SYSTEM: First and second heart sounds were heard. RESPIRATORY SYSTEM: Clear to auscultation. DIGESTIVE SYSTEM: Positive bowel sounds. EXTREMITIES: No peripheral edema. SKIN: No new gross rash. SUMMARY: A 80-year-old gentleman with hepatic carcinoma, who presented here with evidence of acute kidney injury, possibly prerenal, may have progressed to the point of acute tubular necrosis. Thank you for this consultation. We will follow with you. Job ID: [id number]
[2020-11-01] MEDS ORDERED: Aspirin 81 mg Enteric Coated Tablet PO SCH (09:00)
[2020-11-01] MEDS ORDERED: Aspirin Chewable 81 MG TAB PO SCH (09:00)
[2020-11-01] MEDS ORDERED: Pantoprazole 40 MG VIAL IVP SCH (09:00)
[2020-11-01] MEDS: Tamsulosin HCl 0.4 MG CAP PO SCH (09:05)
[2020-11-01 09:39] LABS: Hemoglobin 13.5 g/dL (14.0-18.0); Mean Corpuscular HGB CONC 31.1 g/dL (32.0-36.0); Mean Corpuscular Hemoglobin 28.9 pg (27.0-31.0); Mean Corpuscular Volume 92.8 fL (78.0-98.0); Mean Platelet Volume 11.1 fL (7.4-10.4); Platelet Count 70 thou/uL (130-400); RBC Distribution Width 19.8 % (11.5-14.5); Red Blood Cell (RBC) Count 4.69 mill/uL (4.70-6.10); White Blood Cell (WBC) Count 8.9 thou/uL (4.8-10.8)
[2020-11-01 09:40] LABS: #Eosinphils 0.2 thou/uL (0.0-0.7); #Lymphocytes 1.2 thou/uL (1.20-3.40); #Monocytes 1.2 thou/uL (0.11-0.59); #Neutrophils 6.4 thou/uL (1.40-6.50); %Basophils 0.3 % (0.0-1.0); %Eosinophils 1.8 % (0.0-10.0); %Monocytes 13.8 % (0.0-10.0); %Neutrophils 71.1 % (42.0-75.0)
[2020-11-01] MEDS ORDERED: Sodium Bicarbonate 150 MEQ in Dextrose 5% in Water 1,000 ML IV SCH (11:07)
[2020-11-01] MEDS ORDERED: Insulin Regular 300 UNITS/3 ML VIAL SC PRN ×2 (12:08)
[2020-11-01] MEDS ORDERED: Dextrose 5% in Water 1,000 ML IV PRN (12:08)
[2020-11-01] MEDS ORDERED: Dextrose 50% Abboject 50 ML SYRINGE SLOW IVP PRN (12:08)
[2020-11-01] MEDS ORDERED: Ondansetron ODT 4 MG TAB PO PRN (12:45)
[2020-11-01 12:58] LABS: ALT (SGPT) 164 U/L (8-55); AST (SGOT) 126 U/L (5-34); Albumin 2.7 g/dL (3.4-4.8); Alkaline Phosphatase 244 U/L (40-110); Bilirubin, Total 15.1 mg/dL (0.2-1.2)
[2020-11-01] MEDS: Ondansetron PF 4 MG/2 ML Vial IVP PRN (13:14)
[2020-11-01] MEDS: methylPREDNISolone Sod Succ 40 MG VIAL IVP SCH ×2 (13:15→21:12)
--- NOTE | 2020-11-01 15:15 | CON ---
DATE OF CONSULTATION: This is a 80-year-old white male. I was asked to see because of difficulty urinating. He is a patient of mine, but have not seen him since the summer of 1998. Since that time, he has been diagnosed with hepatocellular carcinoma and he has lost a lot of weight. He has had ascites and he really looks to be in very poor shape compared to what he was looked like when I seen him in the office last. I have seen him in the past for lower urinary tract symptoms. He was on some Proscar and Flomax for this. I have seen him for history of prostatitis. I evaluated him for hematuria before. Then, apart from a large prostate, he has not had any urologic abnormalities, so last workup for that was in 2014. His last PSA was 2.1 and that was in 2019. He came in last night. It sounds like they tried to put a catheter in him in the ER and was unsuccessful. His daughter called my office this morning and I came over to see him at lunch. I had the nurses do an ultrasound of his bladder. He had about a liter or more in his bladder on ultrasound. It does not look like he is still currently on tamsulosin or Flomax. He is quite weak. He has renal insufficiency with elevated creatinine. He is seeing Nephrology for that. I think for now the best bet for his urinary tract would be to place a Quinn. I went ahead and prepped him with Betadine, passed 2% Xylocaine jelly per urethra for topical anesthetic. Then, I placed an 18-Armenian Coude tip catheter and placed 10 mL in the balloon. His urine is very much stained with bilirubin, which is I am sure just related to his liver disease. I gave a urine sample that was sterilely obtained from the catheter to the nurse for urine analysis as he has not had one done. We will leave this catheter in indefinitely at this point until he is improved, and if he does improve and become strong enough to consider resuming normal voiding. It is certainly possible that we will see some improvement in his creatinine just by urinary bladder drainage. His platelet count is low, which in the 70s. He has not had coags done, but it is certainly possible he is going to develop some hematuria from the liver disease and from the low platelet count from the catheter in. We will just have to deal with that if he does. Job ID: [id number]
[2020-11-01 16:08] LABS: Bacteria/HPF None Seen HPF (None Seen); Bilirubin 1+ (Negative); Blood, Urine Negative (Negative); Clarity Turbid (Clear); Glucose, Urine (Dipstick) Normal (Negative); Ketone, Urine Trace mg/dL (Negative); Leukocyte Negative Leu/uL (Negative); Nitrite Negative (Negative); Protein, Urine (Dipstick) 10 mg/dL (Neg-Trace); RBC/HPF 0-3 HPF (0-3); Specific Gravity, Urine 1.023 (1.002-1.036); Squamous Epithelial 0-3 HPF (0-3); Urobilinogen Normal mg/dL (Less than 2); WBC/HPF 0-3 HPF (0-3)
[2020-11-01 16:09] LABS: Urine Culture Reflex No No
--- NOTE | 2020-11-01 16:27 | RAD ---
Abdomen one view HISTORY: Dobbhoff placement. COMPARISON: CT exam earlier on the same date. FINDINGS: Metallic tip of the Dobbhoff feeding catheter projects over the mid right abdomen, at the e xpected location of the second portion duodenum. Air and contrast material within the colon again visualized. Lower abdomen/pelvis excluded from the i mage. Metallic clips overlie the gallbladder fossa. IMPRESSION : Dobbhoff feeding catheter tip at the second portion duodenum.
--- NOTE | 2020-11-01 16:28 | CT ---
CT ABDOMEN AND PELVIS WITHOUT IV CONTRAST: 11/01/20 INDICATIONS: Abnormal liver function test. History of hepatic carcinoma. Abdominal pain. History of hepatic radial embolization and cholecystectomy. COMPARISON: Comparison made to CT abdomen and pelvis 11/11/19. That exam revealed several focal areas of hypodensity within the right lobe of the liver concerning f or malignancy. Mild pancreatic inflammation was seen at that time. Today's findings: Images through the lung bases reveal patchy atelectasis and infiltrate in the posterior right lower l obe. Correlate for pneumonia. Images through the abdomen show moderate to large volume ascites throughout abdomen and pelvis. The liver is small with irregular margins consistent with chronic liver changes and cirrhosis. The en tire liver is heterogeneous. There is no focal mass density identified within the liver. The portal v ein and splenic veins are dilated. Spleen is normal size. Adrenal gland sand kidneys are unremarkable. Small bowel loops normal caliber. Colon unremarkable with contrast density seen throughout the colon. A Quinn catheter is in place and the bladder is contracted. Osseous structures show degenerative changes in the spine. There are superior end plate compressions at multiple levels. IMPRESSION: 1. Patchy atelectasis or infiltrate in the right posterior lung base. 2. Moderate to large volume ascites. 3. Significant change in appearance of the liver when compared to prior study. The liver is now small with irregular margins consistent with changes of cirrhosis. The liver is very heterogeneous; h owever, no focal liver mass delineated. There is dilatation of the portal vein and splenic veins. The re is increased density within the dilated portal and splenic veins and portal vein thrombosis is not excluded. 4. Recommend correlation with hepatic Doppler study to assess blood flow within the portal veins . POS: AGW
--- NOTE | 2020-11-01 17:11 | ULT ---
HEPATIC ULTRASOUND WITH HEPATIC DOPPLER: 11/01/20 INDICATIONS: Exam is performed in follow-up to the CT from earlier today which showed dilated portal and splenic v eins with increased density within these veins on a noncontrast study. FINDINGS: Ascites is noted by ultrasound as described on CT. The liver is not well imaged but is heterogeneous and small. See CT report. The pancreas is obscured. The gallbladder is absent. Common duct is normal caliber. Spleen size appea rs normal. Color Doppler and spectral analysis was performed on the portal veins, hepatic veins, aorta, splenic artery and splenic vein. These vessels all show normal directional flow with Doppler. No evidence of portal vein thrombosis identified. IMPRESSION: No evidence of portal vein thrombosis by Doppler study. POS: AGW
--- NOTE | 2020-11-01 17:15 | PRG ---
DATE OF SERVICE: 11/01/2020 I saw this patient earlier today. It appeared that he had a distended bladder on ultrasound. I put a catheter in his bladder and then contacted the nurse and he actually only drained about 30 mL of a very bilirubin stained urine. Urinalysis was not very impressive for infection. He has also had a noncontrast CAT scan of the belly, which shows a fair amount of ascites fluid. His bladder is not distended. He does not have hydronephrosis. He does not have ureteral stones or any renal masses. His creatinine is still elevated and he has made about 100 mL of urine probably over the last 3 hours to 4 hours. At this point, we will leave the catheter in; however, when it is not needed for monitoring, I would recommend removing it as it is a source of potential infection for him in his debilitated state. It is clear that he did not urinate much at all from the time he was admitted until I saw him at lunchtime today, but I think the reason he did not urinate is because his bladder was not full and he was not producing urine. It does not appear that he has anything that would suggest a post-renal cause for the elevated creatinine. This may be renal or prerenal related to volume changes with ascites. So, we will leave the catheter for now. If it is not felt to be needed, then I would recommend removing it. I talked with the patient's daughter about all this by phone this afternoon. Job ID: [id number]
[2020-11-01] MEDS: Finasteride 5 MG TAB PO SCH (17:35)
[2020-11-01] MEDS: Megestrol Acetate 800 MG/20 ML UDCUP PO SCH (17:35)
[2020-11-01] MEDS ORDERED: traMADol HCl 50 MG TAB PO PRN (17:35)
--- NOTE | 2020-11-01 19:12 | PRG ---
DATE OF SERVICE: 11/01/2020 SUBJECTIVE: Patient is feeling better. He is tolerating his Dobhoff tube feedings. The hospitalist discussed the situation with the patient's oncologist and multiple studies were performed. OBJECTIVE: VITAL SIGNS: Temperature 97.3, pulse 104, respiratory rate 18, and blood pressure 88/55. CHEST: Clear. CARDIOVASCULAR: Regular rate and rhythm. ABDOMEN: Protuberant with fluid wave, distended but not tense. LABORATORY DATA: Shows a white blood cell count 8.9, hemoglobin 13.7. Chemistry show a BUN of 117, creatinine 5.26, glucose 156. The total bilirubin 15.1, AST of 126, ALT of 164, alkaline phosphatase of 244, ammonia 34. Abdominal CT showed abnormal liver. Ultrasound excluded portal vein thrombosis. The patient has now been seen and followed by Dr. Coffey. ASSESSMENT: 1. Failure to thrive. 2. Renal insufficiency, improving with hydration. 3. Hepatocellular carcinoma with worsening LFTs, some improvement with hydration. 4. Ascites. RECOMMENDATIONS: 1. Continue Dobbhoff feedings. This can be a long-term solution to his failure to thrive. 2. Speech pathology evaluation. 3. Follow labs. Job ID: [id number]
--- NOTE | 2020-11-01 19:50 | PRG ---
DATE OF SERVICE: 11/01/2020 SUBJECTIVE: The patient is seen and examined, pretty much remains the same, and noted with the following vital signs. OBJECTIVE: VITAL SIGNS: Afebrile, temperature 97.3, pulse 104, respiratory rate of 18, O2 saturation of 100%, blood pressure 88/55 to 94/61. HEENT: Remarkable for looking cachexia. CARDIOVASCULAR SYSTEM: First and second heart sounds were heard. RESPIRATORY SYSTEM: Clear to auscultation. DIGESTIVE SYSTEM: Revealed a sunken abdomen. EXTREMITIES: No peripheral edema. LABORATORY INVESTIGATION: Showed a chemistry, BUN of 117 and creatinine of 5.26, bicarb of 17. IMPRESSION: 1. Vcipl-jk-[id number] kidney disease, pretty much remains the same. 2. Metabolic acidosis. 3. End-stage renal disease. 4. Failure to thrive. PLAN: 1. We will continue with current renal supportive measures. 2. The patient is on bicarb drip. 3. Further management to be dependent on the clinical course. Job ID: [id number]
[2020-11-01] MEDS: Pantoprazole 40 MG VIAL IVP SCH (21:08)
--- NOTE | 2020-11-01 23:00 | PDOC.HOSPP ---
- Subjective Encounter Date: 11/01/20 Encounter Time: 12:00 Subjective: Patient seen and examined for failure to thrive. Feels generally weak and fatigue. Poor appetite. - Objective Vital Signs & Weight: Vital Signs (12 hours) Temp Pulse Resp BP Pulse Ox 11/01/20 20:22 97.5 F L 110 H 18 89/58 L 97 11/01/20 15:23 97.3 F L 104 H 18 88/55 L 100 Weight Admit Weight 110 lb 9.6 oz Weight 110 lb 9.6 oz I&O: 10/31/20 11/01/20 11/02/20 06:59 06:59 06:59 Intake Total 1850 1380 Output Total 100 160 Balance 1750 1220 Result Diagrams: 11/02/20 05:23 11/02/20 05:23 Additional Labs: Accuchecks 11/01/20 18:06 POC Glucose 156 H Abnormal Lab Results - Last 48 hrs 10/31/20 08:38: Troponin I 0.128 H 10/31/20 11:03: Troponin I 0.138 H 11/01/20 04:55: Carbon Dioxide 17 L, Anion Gap 24 H, BUN 117 H, Creatinine 5.26 H, Albumin 2.5 L 11/01/20 09:13: RBC 4.69 L, Hgb 13.5 L, MCHC 31.1 L, RDW 19.8 H, Plt Count 70 L, MPV 11.1 H, Lymphocytes % 13.0 L, Monocytes % 13.8 H, Monocytes # 1.2 H 11/01/20 09:13: Total Bilirubin 15.1 H, Direct Bilirubin 9.0 H, AST 126 H, ALT 164 H, Alkaline Phosphatase 244 H, Serum Total Protein 5.0 L, Albumin 2.7 L 11/01/20 15:32: Urine Clarity Turbid A, Urine Ketones Trace A, Urine Bilirubin 1+ A, Amorphous Crystals 1+ A, Hyaline Casts 4-6 A Radiology Reviewed by me: Yes (CT abdomen/pelvisascites) Hospitalist ROS - Review of Systems Respiratory: denies: cough, dry, shortness of breath, hemoptysis, SOB with excertion, pleuritic pain, sputum, wheezing, other Cardiovascular: denies: chest pain, palpitations, orthopnea, paroxysmal noc. dyspnea, edema, light headedness, other - Medication Medications: Active Medications Generic Name Dose Route Start Last Admin Trade Name Freq PRN Reason Stop Dose Admin Finasteride 5 mg 11/01/20 12:00 11/01/20 17:35 Finasteride 5 Mg Tab PO 5 mg 1200 ROMEL Administration Sodium Bicarbonate 150 meq/ 1,150 mls @ 125 mls/hr 11/01/20 12:28 11/01/20 16:28 Dextrose/Water IV 1,150 mls .[id number] ROMEL Administration Levofloxacin 500 mg/ Device 100 mls @ 100 mls/hr 11/01/20 18:00 11/01/20 18:54 IVPB 100 mls 1800 ROMEL Administration Megestrol Acetate 800 mg 11/01/20 09:00 11/01/20 17:35 Megestrol Acetate 800 Mg/20 Ml Udcup PO 800 mg DAILY ROMEL Administration Methylprednisolone Sodium Succinate 80 mg 11/01/20 14:00 11/01/20 21:12 Methylprednisolone Sod Succ 40 Mg Vial IVP 80 mg Q8HR ROMEL Administration Ondansetron HCl 4 mg 11/01/20 12:45 11/01/20 13:14 Ondansetron Pf 4 Mg/2 Ml Vial IVP 4 mg Q6H PRN Administration Nausea/Vomiting Pantoprazole Sodium 40 mg 11/01/20 21:00 11/01/20 21:08 Pantoprazole 40 Mg Vial IVP 40 mg Q12HR ROMEL Administration Tamsulosin HCl 0.4 mg 11/01/20 09:00 11/01/20 09:05 Tamsulosin Hcl 0.4 Mg Cap PO 0.4 mg DAILY ROMEL Administration Hospitalist Exam Vitals: Vital Signs (12 hours) Temp Pulse Resp BP Pulse Ox 11/01/20 20:22 97.5 F L 110 H 18 89/58 L 97 11/01/20 15:23 97.3 F L 104 H 18 88/55 L 100 Weight Admit Weight 110 lb 9.6 oz Weight 110 lb 9.6 oz General Appearance: ill appearing General - other findings: Jaundiced Eye: scleral icterus ENT: normocephalic atraumatic, no oropharyngeal lesions, dry oral mucosa Neck: supple, no JVD Heart: RRR, no gallops, no rubs, normal peripheral pulses Respiratory: no wheezes, no rales, no tachypnea Respiratory - other findings: Diminished air entry at bases Gastrointestinal: non-tender, no guarding, no rigidity, distended Extremities: no cyanosis, no clubbing, no edema Extremities - other findings: No calf tenderness Neurological: no new deficit Psychiatric: normal affect, A&O x 3 Hosp A/P (1) Failure to thrive Code(s): [id number] - Status: Acute (2) Acute liver failure Status: Acute (3) HOLGER (acute kidney injury) Code(s): N17.9 - ACUTE KIDNEY FAILURE, UNSPECIFIED Status: Acute (4) Severe dehydration Code(s): E86.0 - DEHYDRATION Status: Acute (5) Urinary retention Code(s): R33.9 - RETENTION OF URINE, UNSPECIFIED Status: Acute (6) Physical deconditioning Code(s): R53.81 - OTHER MALAISE Status: Acute (7) Severe protein-calorie malnutrition Code(s): E43 - UNSPECIFIED SEVERE PROTEIN-CALORIE MALNUTRITION Status: Acute - Plan DVT proph w/SCDs 80-year-old male with liver cancer with recent hospitalization at [facility] for dehydration, acute kidney injury and failure to thrive requiring TPN presented to the hospital on 10/31 with generalized weakness and failure to thrive. His work-up was consistent with severe acute kidney injury with creatinine of 5.4 with acute liver failure with bilirubin of 17.3. His bilirubin 2 weeks ago at [facility] was around 4 per his primary oncologist. Plan: We will continue IV fluids with sodium bicarbonate at 125 mL/h. Dobbhoff tube will be placed. Tube feeding will be started. Will add empiric antibiotics. I discussed with primary oncologist as well as patient's daughter. Right upper quadrant ultrasound with Doppler will be obtained along with abdominal /pelvic CT. We will recheck labs in a.m. After the above discussion the daughter agreed with DNR. Nephrology, GI and urology input appreciated. I updated patient's primary oncologist the reports on the above testing.
[2020-11-02] MEDS: Sodium Bicarbonate 150 MEQ in Dextrose 5% in Water 1,000 ML IV SCH (02:47)
[2020-11-02] MEDS: Ondansetron PF 4 MG/2 ML Vial IVP PRN ×2 (04:14→10:00)
[2020-11-02] MEDS: methylPREDNISolone Sod Succ 40 MG VIAL IVP SCH ×3 (05:16→21:02)
[2020-11-02 05:47] LABS: INR-International Normal Ratio 2.4; PTT 47.2 sec (22.9-36.1); Prothrombin Time 26.7 sec (12.0-14.7)
[2020-11-02 06:01] LABS: CRP (Inflammatory) 2.87 mg/dL (= or < 0.5); Phosphorus 4.1 mg/dL (2.3-4.7)
[2020-11-02 06:07] LABS: Albumin 2.6 g/dL (3.4-4.8); Anion Gap 22 mmol/L (10-20); Calc. Creatinine Clearance 7 mL/min (70-130); Calcium 8.4 mg/dL (7.8-10.44); Carbon Dioxide 28 mmol/L (23-31); Chloride 95 mmol/L (98-107); Glucose 226 mg/dL (83-110); Phosphorus 4.1 mg/dL (2.3-4.7); Sodium 141 mmol/L (136-145)
[2020-11-02 06:08] LABS: #Basophils 0.1 thou/uL (0.0-0.2); #Lymphocytes 0.7 thou/uL (1.20-3.40); #Monocytes 0.6 thou/uL (0.11-0.59); #Neutrophils 7.1 thou/uL (1.40-6.50); %Basophils 0.9 % (0.0-1.0); %Eosinophils 0.1 % (0.0-10.0); %Lymphocytes 8.1 % (21.0-51.0); %Monocytes 6.8 % (0.0-10.0); %Neutrophils 84.1 % (42.0-75.0); Hemoglobin 13.1 g/dL (14.0-18.0); Lymphocytes 3 % (21-51); MDiff Complete? YES; Mean Corpuscular HGB CONC 31.3 g/dL (32.0-36.0); Mean Corpuscular Hemoglobin 29.1 pg (27.0-31.0); Mean Corpuscular Volume 93.1 fL (78.0-98.0); Monocytes 3 % (0-10); Myelocyte 1 % (0-0); Neutrophil 93 % (42-75); Platelet Count 46 thou/uL (130-400); Platelet Morphology Comment Appears Decreased; RBC Distribution Width 20.3 % (11.5-14.5); Red Blood Cell (RBC) Count 4.51 mill/uL (4.70-6.10); Target Cells MODERATE= 6-15 cells (100X) (0-1/hpf); White Blood Cell (WBC) Count 8.4 thou/uL (4.8-10.8)
[2020-11-02 06:09] LABS: ALT (SGPT) 152 U/L (8-55); AST (SGOT) 113 U/L (5-34); Albumin 2.6 g/dL (3.4-4.8); Alkaline Phosphatase 237 U/L (40-110); Bilirubin, Direct 9.6 mg/dL (0.1-0.3); Magnesium 2.3 mg/dL (1.6-2.6); Protein, Total 5.1 g/dL (5.8-8.1)
[2020-11-02 06:21] LABS: BUN (Urea Nitrogen) 126 mg/dL (8.4-25.7); BUN/Creatinine Ratio 21.36
[2020-11-02] MEDS: Pantoprazole 40 MG VIAL IVP SCH ×2 (07:51→21:02)
[2020-11-02] MEDS: Tamsulosin HCl 0.4 MG CAP PO SCH ×2 (07:51→12:01)
[2020-11-02] MEDS: Megestrol Acetate 800 MG/20 ML UDCUP PO SCH (07:52)
[2020-11-02] MEDS: Simethicone Chewable 80 MG TAB PO PRN ×2 (08:42→22:52)
[2020-11-02] MEDS ORDERED: Sodium Bicarbonate 150 MEQ in Dextrose 5% in Water 1,000 ML IV SCH (09:05)
[2020-11-02] MEDS ORDERED: D5W-AA 4.25% with LYTES 1,000 ML BAG IV SCH (09:15)
[2020-11-02] MEDS ORDERED: D5W-AA 4.25% with LYTES 1,000 ML IV SCH (10:00)
[2020-11-02] MEDS: Finasteride 5 MG TAB PO SCH (12:26)
[2020-11-02] MEDS: traMADol HCl 50 MG TAB PO PRN (12:26)
[2020-11-02] MEDS ORDERED: Amino Acids 4.25 %/Dextrose 5% 2,000 ML IV SCH (13:15)
[2020-11-02] MEDS: Fentanyl 100 MCG/2 ML VIAL SLOW IVP PRN ×2 (13:23→18:22)
--- NOTE | 2020-11-02 15:46 | PRG ---
DATE OF SERVICE: 11/02/2020 SUBJECTIVE: The patient did not tolerate his tube feedings. It made him feel and uncomfortable with cramping. He had no nausea or vomiting. OBJECTIVE: VITAL SIGNS: Temperature 97.3, pulse 101, respiratory rate 16, blood pressure 109/71. Intake on the was 1850, intake on 11/02/2020 is 2725. CHEST: Clear. CARDIOVASCULAR: Regular rate and rhythm. ABDOMEN: Protuberant, nontender. EXTREMITIES: Show no edema. LABORATORY DATA: Significant for chloride 95, BUN 126, creatinine 5.90, glucose 226, total bilirubin 16.0, AST of 113, ALT of 152, alkaline phosphatase 237, albumin of 2.6. ASSESSMENT: 1. Failure to thrive-I think this is most likely secondary to the patient's ascites causing anorexia and also related to hepatocellular cancer. He did not seem to tolerate any tube feedings. However, he did not have any vomiting. Presently, starting some hydration with amino acids. 2. Renal failure-this did not seem to improve with hydration. 3. Hepatocellular carcinoma with worsening LFTs. 4. Ascites. RECOMMENDATIONS: At this point, considering everything is going on with this patient, Palliative care needs to be involved. I think keeping this gentleman comfortable should be our main focus whether that includes Palliative care or hospice is unclear. I discussed this with the daughter. I think she is in agreement. Job ID: [id number]
--- NOTE | 2020-11-02 18:35 | PDOC.HOSPP ---
- Subjective Encounter Date: 11/02/20 Encounter Time: 12:00 Subjective: Patient seen and examined for renal and liver failure. Poor appetite. Unable to tolerate above tube feeding. Complains of abdominal pain/distention. Pain not well controlled. - Objective Vital Signs & Weight: Vital Signs (12 hours) Temp Pulse Resp BP Pulse Ox 11/02/20 15:28 97.3 F L 104 H 15 94/64 97 11/02/20 11:52 97.3 F L 101 H 16 109/71 95 11/02/20 07:47 97.5 F L 106 H 16 100/68 95 Weight Admit Weight 110 lb 9.6 oz Weight 110 lb 9.6 oz I&O: 11/01/20 11/02/20 11/03/20 06:59 06:59 06:59 Intake Total 1850 2975 1047 Output Total 100 210 50 Balance 1750 2765 997 Result Diagrams: 11/02/20 05:23 11/02/20 05:23 Additional Labs: Accuchecks 11/02/20 11/02/20 15:45 05:40 POC Glucose 148 H 208 H Abnormal Lab Results - Last 48 hrs 11/01/20 04:55: Carbon Dioxide 17 L, Anion Gap 24 H, BUN 117 H, Creatinine 5.26 H, Albumin 2.5 L 11/01/20 09:13: RBC 4.69 L, Hgb 13.5 L, MCHC 31.1 L, RDW 19.8 H, Plt Count 70 L, MPV 11.1 H, Lymphocytes % 13.0 L, Monocytes % 13.8 H, Monocytes # 1.2 H 11/01/20 09:13: Total Bilirubin 15.1 H, Direct Bilirubin 9.0 H, AST 126 H, ALT 164 H, Alkaline Phosphatase 244 H, Serum Total Protein 5.0 L, Albumin 2.7 L 11/01/20 15:32: Urine Clarity Turbid A, Urine Ketones Trace A, Urine Bilirubin 1+ A, Amorphous Crystals 1+ A, Hyaline Casts 4-6 A 11/02/20 05:23: Chloride 95 L, Anion Gap 22 H, BUN 126 H, Creatinine 5.90 H, Albumin 2.6 L 11/02/20 05:23: Total Bilirubin 16.0 H, Direct Bilirubin 9.6 H, AST 113 H, ALT 152 H, Alkaline Phosphatase 237 H, Serum Total Protein 5.1 L, Albumin 2.6 L 11/02/20 05:23: RBC 4.51 L, Hgb 13.1 L, MCHC 31.3 L, RDW 20.3 H, Plt Count 46 L, MPV 13.0 H, Neutrophils % 84.1 H, Neutrophils % (Manual) 93 H, Lymphocytes % 8.1 L, Lymphocytes % (Manual) 3 L, Myelocytes % 1 H, Neutrophils # 7.1 H, Lymphocytes # 0.7 L, Monocytes # 0.6 H, Plt Morphology Comment Appears Decreased L, Target Cells MODERATE= 6-15 cells H 11/02/20 05:23: PT 26.7 H, APTT 47.2 H 11/02/20 05:23: C-Reactive Protein 2.87 H Radiology Reviewed by me: Yes (CT scan of the abdomenreviewed) Hospitalist ROS - Review of Systems Constitutional: reports: weakness, malaise Respiratory: denies: cough, dry, shortness of breath, hemoptysis, SOB with excertion, pleuritic pain, sputum, wheezing, other Cardiovascular: denies: chest pain, palpitations, orthopnea, paroxysmal noc. dyspnea, edema, light headedness, other - Medication Medications: Active Medications Generic Name Dose Route Start Last Admin Trade Name Freq PRN Reason Stop Dose Admin Fentanyl 12.5 mcg 11/02/20 12:44 11/02/20 18:22 Fentanyl 100 Mcg/2 Ml Vial SLOW IVP 12.5 mcg Q6H PRN Administration Severe Pain (7-10) Finasteride 5 mg 11/01/20 12:00 11/02/20 12:26 Finasteride 5 Mg Tab PO 5 mg 1200 ROMEL Administration Insulin Human Regular 0 units 11/01/20 12:08 11/02/20 05:46 Insulin Regular 300 Units/3 Ml Vial SC 3 unit .MILD SLIDING SCALE PRN Administration Mild Correctional Scale Insulin Human Regular 0 units 11/01/20 12:08 11/02/20 00:16 Insulin Regular 300 Units/3 Ml Vial SC 2 unit .BEDTIME SLIDING SC PRN Administration Bedtime Correctional Scale Megestrol Acetate 800 mg 11/01/20 09:00 11/02/20 07:52 Megestrol Acetate 800 Mg/20 Ml Udcup PO 800 mg DAILY ROMEL Administration Methylprednisolone Sodium Succinate 80 mg 11/01/20 14:00 11/02/20 13:23 Methylprednisolone Sod Succ 40 Mg Vial IVP 80 mg Q8HR ROMEL Administration Ondansetron HCl 4 mg 11/01/20 12:45 11/02/20 10:00 Ondansetron Pf 4 Mg/2 Ml Vial IVP 4 mg Q6H PRN Administration Nausea/Vomiting Pantoprazole Sodium 40 mg 11/01/20 21:00 11/02/20 07:51 Pantoprazole 40 Mg Vial IVP 40 mg Q12HR ROMEL Administration Simethicone 80 mg 11/01/20 08:58 11/02/20 08:42 Simethicone Chewable 80 Mg Tab PO 80 mg QIDPRN PRN Administration Gas Pain Tamsulosin HCl 0.4 mg 11/01/20 09:00 11/02/20 12:01 Tamsulosin Hcl 0.4 Mg Cap PO Not Given DAILY ROMEL Tramadol HCl 50 mg 11/01/20 17:36 11/02/20 12:26 Tramadol Hcl 50 Mg Tab PO 50 mg Q12HR PRN Administration Moderate to Severe Pain (6-10) Hospitalist Exam Vitals: Vital Signs (12 hours) Temp Pulse Resp BP Pulse Ox 11/02/20 15:28 97.3 F L 104 H 15 94/64 97 11/02/20 11:52 97.3 F L 101 H 16 109/71 95 11/02/20 07:47 97.5 F L 106 H 16 100/68 95 Weight Admit Weight 110 lb 9.6 oz Weight 110 lb 9.6 oz General Appearance: awake alert Neck: supple, no JVD Heart: RRR, no gallops Respiratory: no wheezes, rhonchi Respiratory - other findings: Diminished air entry at bases Gastrointestinal: soft, no guarding, no rigidity, tender to palpation (Generalized), distended Extremities: no cyanosis, no clubbing Neurological: no new deficit Psychiatric: somnolent Hosp A/P (1) Failure to thrive Code(s): [id number] - Status: Acute (2) Acute liver failure Status: Acute (3) HOLGER (acute kidney injury) Code(s): N17.9 - ACUTE KIDNEY FAILURE, UNSPECIFIED Status: Acute (4) Severe dehydration Code(s): E86.0 - DEHYDRATION Status: Acute (5) Urinary retention Code(s): R33.9 - RETENTION OF URINE, UNSPECIFIED Status: Acute (6) Physical deconditioning Code(s): R53.81 - OTHER MALAISE Status: Acute (7) Severe protein-calorie malnutrition Code(s): E43 - UNSPECIFIED SEVERE PROTEIN-CALORIE MALNUTRITION Status: Acute (8) Coagulopathy Status: Acute (9) Other issues per previous notes - Plan plan discussed w/ family 80-year-old male with liver cancer with recent hospitalization at [facility] for dehydration, acute kidney injury and failure to thrive requiring TPN presented to the hospital on 10/31 with generalized weakness and failure to thrive. His work-up was consistent with severe acute kidney injury with creatinine of 5.4 with acute liver failure with bilirubin of 17.3. His bilirubin 2 weeks ago at [facility] was around 4 per his primary oncologist. He was started on IV fluids with sodium bicarbonate per nephrology. Dobbhoff tube was placed for feeding per GI recommendation. Patient was however unable to tolerate tube feeding. For this reason he was started on PPN. He was started on empiric antibiotics for questionable infiltrate on the chest CT. The case was discussed with the primary oncologist from [facility] who recommended IV Solu-Medrol 40 mg every 8 hourly. He was made DNR after discussion with the patient and the family on 11/01. Plan: Case discussed with nephrology and the patient/family at the bedside. Since patient is unable to tolerate above tube feeding he will be started on PPN. Continue empiric antibiotics. Continue IV Solu-Medrol per primary oncologist recommendation. Patient has poor urine output. A.m. labs. Continue other medications as above. Poor prognosis. Family can probably stay 24 hours with patient due to probable terminal illness
--- NOTE | 2020-11-02 21:18 | PRG ---
DATE OF SERVICE: 11/02/2020 SUBJECTIVE: The patient is seen and examined. OBJECTIVE: GENERAL: Very unfortunate gentleman. VITAL SIGNS: Afebrile, temperature 97.3, pulse 104, respiratory rate 15, O2 saturation 97%, blood pressure 94/64. HEENT: Unremarkable. CARDIOVASCULAR SYSTEM: First and second heart sounds heard. RESPIRATORY SYSTEM: Clear to auscultation. DIGESTIVE SYSTEM: Distended abdomen. EXTREMITIES: No peripheral edema. SKIN: No new gross rash. LYMPHATICS: No peripheral lymphadenopathy. LABORATORY DATA: Laboratory investigation significant for creatinine of 5.9 with BUN of 106, albumin 16. IMPRESSION: 1. Acute on chronic kidney disease pretty much advanced. 2. Profound azotemia. 3. End-stage liver disease. PLAN: 1. The patient is more or less on supportive measures. 2. The patient is not a great candidate for dialysis, therefore, we will continue with conservative management. 3. This prognosis for this patient is very poor. Job ID: [id number]
--- NOTE | 2020-11-02 21:22 | EKG ---
Test Reason : Blood Pressure : / mmHG Vent. Rate : 103 BPM Atrial Rate : 103 BPM P-R Int : 156 ms QRS Dur : 084 ms QT Int : 348 ms P-R-T Axes : 046 072 062 degrees QTc Int : 455 ms Sinus tachycardia Low voltage QRS Borderline ECG Confirmed by JORDAN COYNE ([id number]), editor publications ASHLI TERRELL ([id number]) on 11/02/2020 9:21:50 PM Referred By: Confirmed By:JORDAN COYNE
[2020-11-03] MEDS: Fentanyl 100 MCG/2 ML VIAL SLOW IVP PRN ×3 (00:01→14:49)
[2020-11-03] MEDS ORDERED: Fentanyl 100 MCG/2 ML VIAL SLOW IVP SCH (01:30)
[2020-11-03 06:01] LABS: ALT (SGPT) 155 U/L (8-55); AST (SGOT) 126 U/L (5-34); Alkaline Phosphatase 289 U/L (40-110); Anion Gap 24 mmol/L (10-20); Bilirubin, Total 21.1 mg/dL (0.2-1.2); Calc. Creatinine Clearance 6 mL/min (70-130); Calcium 8.8 mg/dL (7.8-10.44); Carbon Dioxide 28 mmol/L (23-31); Chloride 90 mmol/L (98-107); Globulin 2.8 g/dL (2.4-3.5); Glucose 129 mg/dL (83-110); Potassium 4.5 mmol/L (3.5-5.1); Protein, Total 5.8 g/dL (5.8-8.1); Sodium 137 mmol/L (136-145)
[2020-11-03] MEDS: methylPREDNISolone Sod Succ 40 MG VIAL IVP SCH ×3 (06:03→21:29)
[2020-11-03 06:12] LABS: BUN (Urea Nitrogen) 134 mg/dL (8.4-25.7)
[2020-11-03 06:18] LABS: Band 3 % (5-11); Hemoglobin 15.6 g/dL (14.0-18.0); Lymphocytes 5 % (21-51); MDiff Complete? YES; Mean Corpuscular HGB CONC 32.5 g/dL (32.0-36.0); Mean Corpuscular Volume 95.5 fL (78.0-98.0); Mean Platelet Volume 12.2 fL (7.4-10.4); Monocytes 6 % (0-10); Neutrophil 86 % (42-75); Platelet Count 40 thou/uL (130-400); Platelet Morphology Comment Appears Decreased; RBC Distribution Width 20.2 % (11.5-14.5); Red Blood Cell (RBC) Count 5.04 mill/uL (4.70-6.10); White Blood Cell (WBC) Count 20.9 thou/uL (4.8-10.8)
[2020-11-03] MEDS: Tamsulosin HCl 0.4 MG CAP PO SCH (08:35)
[2020-11-03] MEDS: Megestrol Acetate 800 MG/20 ML UDCUP PO SCH (08:35)
[2020-11-03] MEDS: Pantoprazole 40 MG VIAL IVP SCH ×2 (08:35→21:29)
[2020-11-03] MEDS: traMADol HCl 50 MG TAB PO PRN (08:53)
[2020-11-03] MEDS ORDERED: Albumin 25% 25 GM/100 ML BOT IVPB SCH (12:45)
--- NOTE | 2020-11-03 12:52 | PRG ---
DATE OF SERVICE: 11/03/2020 SUBJECTIVE: The patient is fairly comfortable. The daughter reports he had a bad night because of abdominal distention and discomfort. He is still not taking anything by mouth. OBJECTIVE: VITAL SIGNS: Temperature 97.3, pulse 102, respiratory rate 14, blood pressure 88/59. CHEST: Clear. CARDIOVASCULAR: Regular rate and rhythm. ABDOMEN: Protuberant, nontender. Bowel sounds are present. EXTREMITIES: Show no edema. LABORATORY DATA: Shows a white blood cell count of 20.9, hemoglobin of 15, hematocrit 48.1. PT is 26.7 with an INR 2.4. Chemistry show a BUN of 134, creatinine 6.68, glucose 129, total bilirubin 21.1, AST 126, ALT of 155, alkaline phosphatase of 289. ASSESSMENT: 1. Failure to thrive, multifactorial. 2. Hepatocellular carcinoma with worsening LFTs, I think this patient's hepatocellular carcinoma has probably progressed. 3. Renal failure. We will go ahead and start Sandostatin, midodrine, and albumin. 4. Symptomatic ascites. RECOMMENDATIONS: 1. We will consider for palliative care or hospice. 2. Begin midodrine, Sandostatin, and albumin. 3. Palliative paracentesis tomorrow. Job ID: [id number]
[2020-11-03] MEDS: Finasteride 5 MG TAB PO SCH (13:01)
[2020-11-03] MEDS: Amino Acids 4.25 %/Dextrose 5% 2,000 ML IV SCH (13:16)
[2020-11-03] MEDS: Octreotide Acetate 100 MCG/ML VIAL SC SCH ×2 (13:17→21:48)
[2020-11-03] MEDS: Midodrine HCl 5 MG TAB PO SCH ×2 (14:38→21:29)
--- NOTE | 2020-11-03 17:28 | PRG ---
DATE OF SERVICE: 11/03/2020 SUBJECTIVE: The patient is not doing very well, noted with the following. OBJECTIVE: VITAL SIGNS: Temperature 97.3, pulse 102, respiratory rate of 14, O2 saturation 100%, blood pressure 88/59. HEENT: Remarkable for conjunctival icterus. CARDIOVASCULAR SYSTEM: First and second heart sounds were heard. RESPIRATORY SYSTEM: Clear to auscultation. DIGESTIVE SYSTEM: Revealed a distended abdomen. EXTREMITIES: No peripheral edema. LABORATORY INVESTIGATION: Showed a creatinine of 6.68, BUN of 134. IMPRESSION: 1. End-stage liver disease. 2. Acute kidney injury/end-stage renal disease. 3. Failure to thrive. PLAN: Not much at this point except supportive measures. The patient seems to be nearing his end and prognosis is very poor. Job ID: [id number]
--- NOTE | 2020-11-03 23:30 | PDOC.HOSPP ---
- Subjective Encounter Date: 11/03/20 Encounter Time: 11:00 Subjective: Patient seen and examined for renal/liver failure. Abdominal discomfort reported. Unable to tolerate the feeding. Regionally weak and fatigued - Objective Vital Signs & Weight: Vital Signs (12 hours) Temp Pulse Resp BP Pulse Ox 11/03/20 23:16 97.6 F 101 H 16 109/68 93 L 11/03/20 21:10 97.2 F L 101 H 16 99/60 94 L 11/03/20 15:45 97.3 F L 102 H 14 109/73 100 11/03/20 11:50 97.3 F L 102 H 14 88/59 L 100 Weight Admit Weight 110 lb 9.6 oz Weight 110 lb 9.6 oz I&O: 11/02/20 11/03/20 11/04/20 06:59 06:59 06:59 Intake Total 2975 1586.5 600 Output Total 210 100 25 Balance 2765 1486.5 575 Result Diagrams: 11/03/20 05:40 11/03/20 05:40 Additional Labs: Accuchecks 11/03/20 11/03/20 11/03/20 15:42 11:57 05:09 POC Glucose 133 H 128 H 108 H 11/02/20 23:50 POC Glucose 160 H Abnormal Lab Results - Last 48 hrs 11/02/20 05:23: Chloride 95 L, Anion Gap 22 H, BUN 126 H, Creatinine 5.90 H, Albumin 2.6 L 11/02/20 05:23: Total Bilirubin 16.0 H, Direct Bilirubin 9.6 H, AST 113 H, ALT 152 H, Alkaline Phosphatase 237 H, Serum Total Protein 5.1 L, Albumin 2.6 L 11/02/20 05:23: RBC 4.51 L, Hgb 13.1 L, MCHC 31.3 L, RDW 20.3 H, Plt Count 46 L, MPV 13.0 H, Neutrophils % 84.1 H, Neutrophils % (Manual) 93 H, Lymphocytes % 8.1 L, Lymphocytes % (Manual) 3 L, Myelocytes % 1 H, Neutrophils # 7.1 H, Lymphocytes # 0.7 L, Monocytes # 0.6 H, Plt Morphology Comment Appears Decreased L, Target Cells MODERATE= 6-15 cells H 11/02/20 05:23: PT 26.7 H, APTT 47.2 H 11/02/20 05:23: C-Reactive Protein 2.87 H 11/03/20 05:40: WBC 20.9 H, RDW 20.2 H, Plt Count 40 L, MPV 12.2 H, Neutrophils % (Manual) 86 H, Band Neuts % (Manual) 3 L, Lymphocytes % (Manual) 5 L, Plt Morp hology Comment Appears Decreased L 11/03/20 05:40: Chloride 90 L, Anion Gap 24 H, BUN 134 H, Creatinine 6.68 H, Total Bilirubin 21.1 H, AST 126 H, ALT 155 H, Alkaline Phosphatase 289 H, Albumin 3.0 L, Albumin/Globulin Ratio 1.1 L Radiology Reviewed by me: Yes (CT abdomenreviewed) Hospitalist ROS - Review of Systems Respiratory: denies: cough, dry, shortness of breath, hemoptysis, SOB with excertion, pleuritic pain, sputum, wheezing, other Cardiovascular: denies: chest pain, palpitations, orthopnea, paroxysmal noc. dyspnea, edema, light headedness, other - Medication Medications: Active Medications Generic Name Dose Route Start Last Admin Trade Name Freq PRN Reason Stop Dose Admin Fentanyl 12.5 mcg 11/02/20 12:44 11/03/20 14:49 Fentanyl 100 Mcg/2 Ml Vial SLOW IVP 12.5 mcg Q6H PRN Administration Severe Pain (7-10) Finasteride 5 mg 11/01/20 12:00 11/03/20 13:01 Finasteride 5 Mg Tab PO 5 mg 1200 ROMEL Administration Levofloxacin 500 mg/ Device 100 mls @ 100 mls/hr 11/03/20 18:00 11/03/20 17:37 IVPB 100 mls Q48H ROMEL Administration Amino Acids/Dextrose 2,000 mls @ 83.333 mls/hr 11/03/20 12:00 11/03/20 13:16 Clinimix 4.25%-5% IV 2,000 mls 1200 ROMEL Administration Insulin Human Regular 0 units 11/01/20 12:08 11/02/20 05:46 Insulin Regular 300 Units/3 Ml Vial SC 3 unit .MILD SLIDING SCALE PRN Administration Mild Correctional Scale Insulin Human Regular 0 units 11/01/20 12:08 11/02/20 00:16 Insulin Regular 300 Units/3 Ml Vial SC 2 unit .BEDTIME SLIDING SC PRN Administration Bedtime Correctional Scale Megestrol Acetate 800 mg 11/01/20 09:00 11/03/20 08:35 Megestrol Acetate 800 Mg/20 Ml Udcup PO 800 mg DAILY ROMEL Administration Methylprednisolone Sodium Succinate 80 mg 11/01/20 14:00 11/03/20 21:29 Methylprednisolone Sod Succ 40 Mg Vial IVP 80 mg Q8HR ROMEL Administration Midodrine 5 mg 11/03/20 15:00 11/03/20 21:29 Midodrine Hcl 5 Mg Tab PO 5 mg TID ROMEL Administration Octreotide Acetate 100 mcg 11/03/20 14:00 11/03/20 21:48 Octreotide Acetate 100 Mcg/Ml Vial SC 100 mcg Q8HR ROMEL Administration Ondansetron HCl 4 mg 11/01/20 12:45 11/02/20 10:00 Ondansetron Pf 4 Mg/2 Ml Vial IVP 4 mg Q6H PRN Administration Nausea/Vomiting Pantoprazole Sodium 40 mg 11/01/20 21:00 11/03/20 21:29 Pantoprazole 40 Mg Vial IVP 40 mg Q12HR ROMEL Administration Simethicone 80 mg 11/01/20 08:58 11/02/20 22:52 Simethicone Chewable 80 Mg Tab PO 80 mg QIDPRN PRN Administration Gas Pain Tamsulosin HCl 0.4 mg 11/01/20 09:00 11/03/20 08:35 Tamsulosin Hcl 0.4 Mg Cap PO 0.4 mg DAILY ROMEL Administration Tramadol HCl 50 mg 11/01/20 17:36 11/03/20 08:53 Tramadol Hcl 50 Mg Tab PO 50 mg Q12HR PRN Administration Moderate to Severe Pain (6-10) Hospitalist Exam Vitals: Vital Signs (12 hours) Temp Pulse Resp BP Pulse Ox 11/03/20 23:16 97.6 F 101 H 16 109/68 93 L 11/03/20 21:10 97.2 F L 101 H 16 99/60 94 L 11/03/20 15:45 97.3 F L 102 H 14 109/73 100 11/03/20 11:50 97.3 F L 102 H 14 88/59 L 100 Weight Admit Weight 110 lb 9.6 oz Weight 110 lb 9.6 oz General Appearance: awake alert Neck: supple, no JVD Heart: RRR, no gallops Respiratory: no wheezes, no ronchi, normal percussion, rales Gastrointestinal: soft, non-distended, normal bowel sounds Extremities: no cyanosis, no clubbing Neurological: no new deficit Musculoskeletal: generalized weakness Psychiatric: normal affect, A&O x 3 Hosp A/P (1) Failure to thrive Code(s): [id number] - Status: Acute (2) Acute liver failure Status: Acute (3) HOLGER (acute kidney injury) Code(s): N17.9 - ACUTE KIDNEY FAILURE, UNSPECIFIED Status: Acute (4) Severe dehydration Code(s): E86.0 - DEHYDRATION Status: Acute (5) Urinary retention Code(s): R33.9 - RETENTION OF URINE, UNSPECIFIED Status: Acute (6) Physical deconditioning Code(s): R53.81 - OTHER MALAISE Status: Acute (7) Severe protein-calorie malnutrition Code(s): E43 - UNSPECIFIED SEVERE PROTEIN-CALORIE MALNUTRITION Status: Acute (8) Coagulopathy Status: Acute (9) Other issues per previous notes - Plan DVT proph w/SCDs 80-year-old male with liver cancer with recent hospitalization at [facility] for dehydration, acute kidney injury and failure to thrive requiring TPN presented to the hospital on 10/31 with generalized weakness and failure to thrive. His work-up was consistent with severe acute kidney injury with creatinine of 5.4 with acute liver failure with bilirubin of 17.3. His bilirubin 2 weeks ago at [facility] was around 4 per his primary oncologist. He was started on IV fluids with sodium bicarbonate per nephrology. Dobbhoff tube was placed for feeding per GI recommendation. Patient was however unable to tolerate tube feeding. For this reason he was started on PPN. He was started on empiric antibiotics for questionable infiltrate on the chest CT. The case was discussed with the primary oncologist from [facility] who recommended IV Solu-Medrol 40 mg every 8 hourly. He was made DNR after discussion with the patient and the family on 11/01. Plan: Poor urine output. Renal and liver function worsening. Hold tube feeding for now since patient is unable to tolerate it. Continue sliding scale. Continue IV PPI. Gentle hydration with PPN. Continue IV Levaquin empirically. Continue IV Solu-Medrol. Await GI and nephrology input. Continue other medications as above
[2020-11-04] MEDS: Fentanyl 100 MCG/2 ML VIAL SLOW IVP PRN ×2 (01:52→06:50)
[2020-11-04] MEDS ORDERED: Lorazepam 2 MG/ML VIAL SLOW IVP SCH (02:30)
[2020-11-04] MEDS: methylPREDNISolone Sod Succ 40 MG VIAL IVP SCH ×3 (05:30→20:53)
[2020-11-04] MEDS: Octreotide Acetate 100 MCG/ML VIAL SC SCH ×3 (05:30→20:56)
[2020-11-04 06:37] LABS: INR-International Normal Ratio 3.3; PTT 57.9 sec (22.9-36.1); Prothrombin Time 34.1 sec (12.0-14.7)
[2020-11-04 06:40] LABS: #Lymphocytes 0.6 thou/uL (1.20-3.40); #Monocytes 1.3 thou/uL (0.11-0.59); #Neutrophils 20.8 thou/uL (1.40-6.50); %Basophils 0.1 % (0.0-1.0); %Lymphocytes 2.4 % (21.0-51.0); %Monocytes 5.8 % (0.0-10.0); %Neutrophils 91.6 % (42.0-75.0); Hemoglobin 12.5 g/dL (14.0-18.0); Mean Corpuscular Hemoglobin 30.5 pg (27.0-31.0); Mean Corpuscular Volume 95.3 fL (78.0-98.0); Mean Platelet Volume 7.5 fL (7.4-10.4); Platelet Count 39 thou/uL (130-400); RBC Distribution Width 20.1 % (11.5-14.5); Red Blood Cell (RBC) Count 4.11 mill/uL (4.70-6.10); White Blood Cell (WBC) Count 22.7 thou/uL (4.8-10.8)
[2020-11-04 06:51] LABS: ALT (SGPT) 123 U/L (8-55); AST (SGOT) 121 U/L (5-34); Alkaline Phosphatase 217 U/L (40-110); Anion Gap 24 mmol/L (10-20); Bilirubin, Total 21.8 mg/dL (0.2-1.2); Calc. Creatinine Clearance 6 mL/min (70-130); Calcium 8.5 mg/dL (7.8-10.44); Carbon Dioxide 25 mmol/L (23-31); Chloride 88 mmol/L (98-107); Globulin 2.2 g/dL (2.4-3.5); Glucose 170 mg/dL (83-110); Potassium 5.1 mmol/L (3.5-5.1); Protein, Total 5.2 g/dL (5.8-8.1); Sodium 132 mmol/L (136-145)
[2020-11-04 06:55] LABS: Band 12 % (5-11); Lymphocytes 4 % (21-51); MDiff Complete? YES; Monocytes 5 % (0-10); Neutrophil 79 % (42-75); Platelet Morphology Comment Appears Decreased; Target Cells SLIGHT = 2-5 cells (100X) (0-1/hpf)
[2020-11-04] MEDS ORDERED: Albumin 25% 25 GM/100 ML BOT IVPB SCH (07:00)
[2020-11-04 07:04] LABS: BUN (Urea Nitrogen) 152 mg/dL (8.4-25.7)
[2020-11-04 07:06] LABS: Lipase 1456 U/L (8-78)
[2020-11-04] MEDS: Tamsulosin HCl 0.4 MG CAP PO SCH (08:25)
[2020-11-04] MEDS: Midodrine HCl 5 MG TAB PO SCH ×3 (08:25→20:35)
[2020-11-04] MEDS: Megestrol Acetate 800 MG/20 ML UDCUP PO SCH (08:25)
[2020-11-04] MEDS: Pantoprazole 40 MG VIAL IVP SCH ×2 (08:25→20:35)
[2020-11-04] MEDS ORDERED: Sodium Bicarbonate 2.5 MEQ/5 ML VIAL ONE (10:26)
[2020-11-04] MEDS ORDERED: Lidocaine 1% PF 5 ML VIAL ONE (10:27)
--- NOTE | 2020-11-04 10:46 | PRG ---
DATE OF SERVICE: 11/04/2020 SUBJECTIVE: I am meeting Mr. Deng and his daughter for the first time today. He has not been taking anything by mouth. He has become more encephalopathic per his daughter. He does appear to be in some discomfort from his abdominal distention. He continues on TPN. Renal function and coagulopathy are worsening. Paracentesis for palliative measure has been ordered for today. OBJECTIVE: VITAL SIGNS: Temperature 97.3, pulse 104, blood pressure 114/61, 95% oxygen saturation on 2 L by nasal cannula. GENERAL: Cachectic, encephalopathic, not responsive verbally. SKIN: He is jaundiced. HEART: Regular rate and rhythm. LUNGS: No respiratory distress. Clear to auscultation. ABDOMEN: Distended with ascites, it is tense. Bowel sounds are hypoactive, but present. No increased tenderness to palpation. EXTREMITIES: Wasting of extremities x4. LABORATORY STUDIES: WBC up to 22.7, hemoglobin 12.5, platelets 39. INR worsening from 2.4 up to 3.3. Sodium 132, potassium 5.1, BUN up to 152, creatinine up to 7.28. Total bilirubin up to 21.8, alkaline phosphatase 217, AST 121, ALT 123, albumin 3.0. ASSESSMENT AND PLAN: 1. End-stage cirrhosis, with worsening coagulopathy, thrombocytopenia, and jaundice. 2. Hepatocellular carcinoma. 3. Failure to thrive, multifactorial. 4. Renal failure. Nephrology is following. Dr. Durant started him on octreotide, midodrine, and albumin. Continue with this. 5. Symptomatic ascites. I had a long discussion with the patient's daughter today. The patient's prognosis is quite grim. I do not think he has any chance for meaningful recovery. Renal function continues to worsen despite aggressive measures. Nephrology is following. If he is not going to be a candidate for dialysis, then I think total hospice care consideration would be warranted regarding palliative measures. Therapeutic paracentesis has been ordered for today, which is reasonable. Note, the patient does have worsening coagulopathy and thrombocytopenia. Job ID: [id number] MTDD
[2020-11-04] MEDS: Finasteride 5 MG TAB PO SCH (11:48)
--- NOTE | 2020-11-04 12:39 | ULT ---
Ultrasound-guided paracentesis: HISTORY: Cirrhosis and ascites. FINDINGS: Informed consent obtained prior to the procedure. Preprocedural imaging demonstrated intrap eritoneal free fluid. An area was marked in the right lower quadrant mid axillary line, and then meticulously prepped and d raped in normal sterile fashion and anesthetized with 1% buffered lidocaine. With direct sonographic guidance, a 19-gauge needle and 5 Pashto Yueh catheter were advanced into the abdomen. After the return of fluid, the catheter was advanced, and the needle was removed. Approximately 4 L of dark brown fluid was aspirated. The introducer sheath was removed, and hemostasi s was achieved with direct pressure. A dry sterile dressing was placed. The patient tolerated the procedure well and without immediate complication. IMPRESSION: Technically successful ultrasound-guided paracentesis.
--- NOTE | 2020-11-04 13:11 | PQF ---
CLINICAL DOCUMENTATION CLARIFICATION FORM: Dear DR. Cirilo HOOKS Date: 11/04/20. 1300 Please exercise your independent, professional judgment in responding to the clarification form. Clinical indicators are provided on the bottom of this form for your review. Please check appropriate box(es): [ ] Type 1 FL (NSTEMI) [ x] Type 2 FL (T2MI) secondary to: [ ] HOLGER [ ] Acute Liver Failure [ ] other and includes patients with Type I & Type 2 FL) [ ] insignificant lab value [ ] Other: [ ] Takotsubo syndrome [ ] Other diagnosis [ ] Unable to determine In addition, please specify: Present on Admission (POA): [ ] Yes [ ] No [ ] Unable to determine For continuity of documentation, please document condition throughout progress notes and discharge summary. Thank You. To be completed by CDI/Coding staff for physician review: CLINICAL INDICATORS - SIGNS / SYMPTOMS / LABS / RESULTS AND LOCATION IN EMR 2/4 TROPONIN I 0.130, 0.128, 0.138 Troponin- likely type II supply demand, likely supply demand ischemia. Will check ECHO ( H&P/DAIVN) 2/4 RISKS / RESULTS AND LOCATION IN EMR Acute liver failure, HOLGER, Advanced Age ( 80) (PN/Ladha) 2/7 TREATMENTS / RESULTS AND LOCATION IN EMR Serial troponin (2/) Supplemental Oxygen ( 2/4 present) Thank you! CDS Signature: Brandy Moore RN. Phone #: [phone] Date: 11/04/2020 This is a permanent part of the Medical Record [facility]
[2020-11-04] MEDS ORDERED: Fentanyl 100 MCG/2 ML VIAL SLOW IVP PRN (13:30)
--- NOTE | 2020-11-04 13:35 | PDOC.HOSPP ---
- Objective Vital Signs & Weight: Vital Signs (12 hours) Temp Pulse Resp BP Pulse Ox 11/04/20 12:04 97.4 F L 102 H 20 98/59 L 96 11/04/20 08:25 95 11/04/20 08:00 97.3 F L 104 H 20 114/61 95 11/04/20 05:27 97.0 F L 101 H 20 104/65 92 L Weight Admit Weight 110 lb 9.6 oz Weight 110 lb 9.6 oz I&O: 11/03/20 11/04/20 11/05/20 06:59 06:59 06:59 Intake Total 1586.5 1629.6 Output Total 100 75 Balance 1486.5 1554.6 Result Diagrams: 11/04/20 06:14 11/04/20 06:14 Additional Labs: Accuchecks 11/04/20 11/04/20 11/04/20 11:41 05:27 00:13 POC Glucose 167 H 159 H 159 H 11/03/20 11/02/20 11/02/20 15:42 11:37 00:11 POC Glucose 133 H 179 H 213 H Hospitalist ROS - Medication Medications: Active Medications Generic Name Dose Route Start Last Admin Trade Name Freq PRN Reason Stop Dose Admin Finasteride 5 mg 11/01/20 12:00 11/04/20 11:48 Finasteride 5 Mg Tab PO 5 mg 1200 ROMEL Administration Levofloxacin 500 mg/ Device 100 mls @ 100 mls/hr 11/03/20 18:00 11/03/20 17:37 IVPB 100 mls Q48H ROMEL Administration Amino Acids/Dextrose 2,000 mls @ 83.333 mls/hr 11/03/20 12:00 11/03/20 13:16 Clinimix 4.25%-5% IV 2,000 mls 1200 ROMEL Administration Insulin Human Regular 0 units 11/01/20 12:08 11/02/20 05:46 Insulin Regular 300 Units/3 Ml Vial SC 3 unit .MILD SLIDING SCALE PRN Administration Mild Correctional Scale Insulin Human Regular 0 units 11/01/20 12:08 11/02/20 00:16 Insulin Regular 300 Units/3 Ml Vial SC 2 unit .BEDTIME SLIDING SC PRN Administration Bedtime Correctional Scale Megestrol Acetate 800 mg 11/01/20 09:00 11/04/20 08:25 Megestrol Acetate 800 Mg/20 Ml Udcup PO 800 mg DAILY ROMEL Administration Methylprednisolone Sodium Succinate 80 mg 11/01/20 14:00 11/04/20 13:12 Methylprednisolone Sod Succ 40 Mg Vial IVP 80 mg Q8HR ROMEL Administration Midodrine 5 mg 11/03/20 15:00 11/04/20 08:25 Midodrine Hcl 5 Mg Tab PO 5 mg TID ROMEL Administration Octreotide Acetate 100 mcg 11/03/20 14:00 11/04/20 05:30 Octreotide Acetate 100 Mcg/Ml Vial SC 100 mcg Q8HR ROMEL Administration Ondansetron HCl 4 mg 11/01/20 12:45 11/02/20 10:00 Ondansetron Pf 4 Mg/2 Ml Vial IVP 4 mg Q6H PRN Administration Nausea/Vomiting Pantoprazole Sodium 40 mg 11/01/20 21:00 11/04/20 08:25 Pantoprazole 40 Mg Vial IVP 40 mg Q12HR ROMEL Administration Simethicone 80 mg 11/01/20 08:58 11/02/20 22:52 Simethicone Chewable 80 Mg Tab PO 80 mg QIDPRN PRN Administration Gas Pain Tamsulosin HCl 0.4 mg 11/01/20 09:00 11/04/20 08:25 Tamsulosin Hcl 0.4 Mg Cap PO 0.4 mg DAILY ROMEL Administration Tramadol HCl 50 mg 11/01/20 17:36 11/03/20 08:53 Tramadol Hcl 50 Mg Tab PO 50 mg Q12HR PRN Administration Moderate to Severe Pain (6-10) Hospitalist Exam Vitals: Vital Signs (12 hours) Temp Pulse Resp BP Pulse Ox 11/04/20 12:04 97.4 F L 102 H 20 98/59 L 96 11/04/20 08:25 95 11/04/20 08:00 97.3 F L 104 H 20 114/61 95 11/04/20 05:27 97.0 F L 101 H 20 104/65 92 L Weight Admit Weight 110 lb 9.6 oz Weight 110 lb 9.6 oz Hosp A/P - Plan ailure to thrive Code(s): [id number] - Status: Acute (2) Acute liver failure Status: Acute (3) HOLGER (acute kidney injury) Code(s): N17.9 - ACUTE KIDNEY FAILURE, UNSPECIFIED Status: Acute (4) Severe dehydration Code(s): E86.0 - DEHYDRATION Status: Acute (5) Urinary retention Code(s): R33.9 - RETENTION OF URINE, UNSPECIFIED Status: Acute (6) Physical deconditioning Code(s): R53.81 - OTHER MALAISE Status: Acute (7) Severe protein-calorie malnutrition Code(s): E43 - UNSPECIFIED SEVERE PROTEIN-CALORIE MALNUTRITION Status: Acute (8) Coagulopathy Status: Acute (9) Other issues per previous notes - Plan DVT proph w/SCDs 80-year-old male with liver cancer with recent hospitalization at [facility] for dehydration, acute kidney injury and failure to thrive requiring TPN presented to the hospital on 10/31 with generalized weakness and failure to thrive. His work-up was consistent with severe acute kidney injury with creatinine of 5.4 with acute liver failure with bilirubin of 17.3. His bilirubin 2 weeks ago at [facility] was around 4 per his primary oncologist. He was started on IV fluids with sodium bicarbonate per nephrology. Dobbhoff tube was placed for feeding per GI recommendation. Patient was however unable to tolerate tube feeding. For this reason he was started on PPN. He was started on empiric antibiotics for questionable infiltrate on the chest CT. The case was discussed with the primary oncologist from [facility] who recommended IV Solu-Medrol 40 mg every 8 hourly. He was made DNR after discussion with the patient and the family on 11/01. -Dobbhoff tube feed is on hold -PPI -Empiric IV Levaquin and IV Solu-Medrol -Overall worsening condition -Discussed with the daughter at length. -She is emotionally in quite a bit of distress and given her father's condition is worsening faster the last few weeks until then time he was quite stable She is agreeable for hospice consult She feels that her father would prefer to be at home. -Will continue the medical management until daughter agreeable for home hospice. -Palliative also following with us
[2020-11-04] MEDS ORDERED: traMADol HCl 50 MG TAB PO PRN (13:53)
[2020-11-04] MEDS: Morphine 2 MG/ML VIAL SLOW IVP PRN ×2 (14:17→20:51)
[2020-11-04] MEDS: Amino Acids 4.25 %/Dextrose 5% 2,000 ML IV SCH (17:24)
[2020-11-04] MEDS ORDERED: Amino Acids 4.25 %/Dextrose 5% 2,000 ML IV SCH (17:30)
--- NOTE | 2020-11-04 18:53 | PRG ---
DATE OF SERVICE: 11/04/2020 SUBJECTIVE: Patient is seen, not in a very good state. OBJECTIVE: VITAL SIGNS: Noted with the following vital signs; temperature 97.4, pulse 102, respiratory rate of 20, blood pressure 110/53. HEENT: Very sunken eyeball. CARDIOVASCULAR SYSTEM: First and second heart sounds were heard. RESPIRATORY SYSTEM: Revealed clear to auscultation. EXTREMITIES: No peripheral edema. LABORATORY INVESTIGATION: Showed a hemoglobin of 12.5. Chemistry showed a BUN of 152 with a creatinine of 7.28. IMPRESSION: 1. End-stage liver disease, . 2. End-stage renal disease. 3. End-stage liver carcinoma. 4. Failure to thrive. PLAN: 1. I did have some discussion with the daughter explaining the inability of this patient to undergo hemodialysis and with that hemodialysis, renal failure will additionally affect this patient's prognosis, where the patient is not a candidate for dialysis. The daughter expressed some understanding with the decision regarding the plan of care. 2. Further management will be dependent on the clinical course and further decisions by the daughter. Prognosis close to zero. Job ID: [id number]
[2020-11-05] MEDS: methylPREDNISolone Sod Succ 40 MG VIAL IVP SCH ×3 (05:43→20:58)
[2020-11-05] MEDS: Octreotide Acetate 50 MCG/ML AMP SC SCH ×2 (06:03→15:02)
[2020-11-05] MEDS: Megestrol Acetate 800 MG/20 ML UDCUP PO SCH (08:46)
[2020-11-05] MEDS: Tamsulosin HCl 0.4 MG CAP PO SCH (08:46)
[2020-11-05] MEDS: Pantoprazole 40 MG VIAL IVP SCH ×2 (08:47→20:59)
[2020-11-05] MEDS: Midodrine HCl 5 MG TAB PO SCH ×2 (08:47→15:20)
[2020-11-05] MEDS: Finasteride 5 MG TAB PO SCH (11:20)
--- NOTE | 2020-11-05 14:09 | PDOC.HOSPP ---
- Subjective Encounter Date: 11/05/20 Encounter Time: 09:30 Subjective: Patient seen this morning he is quite lethargic he is not responding much. later I talked to the daughter at length around 2 PM - Objective Vital Signs & Weight: Vital Signs (12 hours) Temp Pulse Resp BP Pulse Ox 11/05/20 11:43 98.1 F 75 16 131/79 98 11/05/20 08:47 95 11/05/20 07:41 97.3 F L 101 H 20 111/55 L 95 11/05/20 05:10 97.2 F L 101 H 14 104/66 93 L Weight Admit Weight 110 lb 9.6 oz Weight 110 lb 9.6 oz I&O: 11/04/20 11/05/20 11/06/20 06:59 06:59 06:59 Intake Total 1629.6 1829.3 Output Total 75 75 Balance 1554.6 1754.3 Result Diagrams: 11/04/20 06:14 11/04/20 06:14 Additional Labs: Accuchecks 11/05/20 11/05/20 11/04/20 11:33 05:49 23:55 POC Glucose 140 H 155 H 144 H 11/04/20 18:17 POC Glucose 181 H Hospitalist ROS - Medication Medications: Active Medications Generic Name Dose Route Start Last Admin Trade Name Freq PRN Reason Stop Dose Admin Finasteride 5 mg 11/01/20 12:00 11/05/20 11:20 Finasteride 5 Mg Tab PO 5 mg 1200 ROMEL Administration Levofloxacin 500 mg/ Device 100 mls @ 100 mls/hr 11/03/20 18:00 11/03/20 17:37 IVPB 100 mls Q48H ROMEL Administration Amino Acids/Dextrose 2,000 mls @ 83.333 mls/hr 11/04/20 17:30 11/04/20 17:26 Clinimix 4.25%-5% IV 2,000 mls INF ROMEL Administration Insulin Human Regular 0 units 11/01/20 12:08 11/02/20 05:46 Insulin Regular 300 Units/3 Ml Vial SC 3 unit .MILD SLIDING SCALE PRN Administration Mild Correctional Scale Insulin Human Regular 0 units 11/01/20 12:08 11/02/20 00:16 Insulin Regular 300 Units/3 Ml Vial SC 2 unit .BEDTIME SLIDING SC PRN Administration Bedtime Correctional Scale Megestrol Acetate 800 mg 11/01/20 09:00 11/05/20 08:46 Megestrol Acetate 800 Mg/20 Ml Udcup PO 800 mg DAILY ROMEL Administration Methylprednisolone Sodium Succinate 80 mg 11/01/20 14:00 11/05/20 05:43 Methylprednisolone Sod Succ 40 Mg Vial IVP 80 mg Q8HR ROMEL Administration Midodrine 5 mg 11/03/20 15:00 11/05/20 08:47 Midodrine Hcl 5 Mg Tab PO 5 mg TID ROMEL Administration Morphine Sulfate 2 mg 11/04/20 13:53 11/04/20 20:51 Morphine 2 Mg/Ml Vial SLOW IVP 2 mg Q6H PRN Administration Pain Octreotide Acetate 100 mcg 11/05/20 06:00 11/05/20 06:03 Octreotide Acetate 50 Mcg/Ml Amp SC 100 mcg Q8HR ROMEL Administration Ondansetron HCl 4 mg 11/01/20 12:45 11/02/20 10:00 Ondansetron Pf 4 Mg/2 Ml Vial IVP 4 mg Q6H PRN Administration Nausea/Vomiting Pantoprazole Sodium 40 mg 11/01/20 21:00 11/05/20 08:47 Pantoprazole 40 Mg Vial IVP 40 mg Q12HR ROMEL Administration Simethicone 80 mg 11/01/20 08:58 11/02/20 22:52 Simethicone Chewable 80 Mg Tab PO 80 mg QIDPRN PRN Administration Gas Pain Sodium Chloride 10 ml 11/04/20 21:00 11/05/20 08:47 Flush - Normal Saline 10 Ml Syringe IVF 10 ml Q12HR ROMEL Administration Tamsulosin HCl 0.4 mg 11/01/20 09:00 11/05/20 08:46 Tamsulosin Hcl 0.4 Mg Cap PO 0.4 mg DAILY ROMEL Administration Tramadol HCl 50 mg 11/01/20 17:36 11/03/20 08:53 Tramadol Hcl 50 Mg Tab PO 50 mg Q12HR PRN Administration Moderate to Severe Pain (6-10) Hospitalist Exam Vitals: Vital Signs (12 hours) Temp Pulse Resp BP Pulse Ox 11/05/20 11:43 98.1 F 75 16 131/79 98 11/05/20 08:47 95 11/05/20 07:41 97.3 F L 101 H 20 111/55 L 95 11/05/20 05:10 97.2 F L 101 H 14 104/66 93 L Weight Admit Weight 110 lb 9.6 oz Weight 110 lb 9.6 oz General Appearance: NAD, awake alert Eye: PERRL ENT: normocephalic atraumatic Neck: supple Heart: RRR, normal peripheral pulses Respiratory: normal chest expansion, rales, tachypneic, wheezes Gastrointestinal: soft, non-distended Musculoskeletal: generalized weakness Psychiatric: oriented to person, somnolent, lethargic Hosp A/P - Plan ailure to thrive Code(s): [id number] - Status: Acute (2) Acute liver failure Status: Acute (3) HOLGER (acute kidney injury) Code(s): N17.9 - ACUTE KIDNEY FAILURE, UNSPECIFIED Status: Acute (4) Severe dehydration Code(s): E86.0 - DEHYDRATION Status: Acute (5) Urinary retention Code(s): R33.9 - RETENTION OF URINE, UNSPECIFIED Status: Acute (6) Physical deconditioning Code(s): R53.81 - OTHER MALAISE Status: Acute (7) Severe protein-calorie malnutrition Code(s): E43 - UNSPECIFIED SEVERE PROTEIN-CALORIE MALNUTRITION Status: Acute (8) Coagulopathy Status: Acute (9) Other issues per previous notes - Plan DVT proph w/SCDs 80-year-old male with liver cancer with recent hospitalization at [facility] for dehydration, acute kidney injury and failure to thrive requiring TPN presented to the hospital on 10/31 with generalized weakness and failure to thrive. His work-up was consistent with severe acute kidney injury with creatinine of 5.4 with acute liver failure with bilirubin of 17.3. His bilirubin 2 weeks ago at [facility] was around 4 per his primary oncologist. He was started on IV fluids with sodium bicarbonate per nephrology. Dobbhoff tube was placed for feeding per GI recommendation. Patient was however unable to tolerate tube feeding. For this reason he was started on PPN. He was started on empiric antibiotics for questionable infiltrate on the chest CT. The case was discussed with the primary oncologist from [facility] who recommended IV Solu-Medrol 40 mg every 8 hourly. He was made DNR after discussion with the patient and the family on 2/5. -Dobbhoff tube feed is on hold -PPI -Empiric IV Levaquin and IV Solu-Medrol -Overall worsening condition -Discussed with the daughter at length. -She is emotionally in quite a bit of distress and given her father's condition is worsening faster the last few weeks until then time he was quite stable She is agreeable for hospice consult She feels that her father would prefer to be at home. -Will continue the medical management until daughter agreeable for home hospice. -Palliative also following with us I talked to the daughter [phone] very lengthy conversation. She has a hard time accepting her father's prognosis. All the options of management and care discussed including inpatient hospice. She does not want her father to be an inpatient hospice C she likes her father to be at home comfortable but she is also concerned about how she is going to manage if he needed any medications. We will arrange for home hospice visit. Also wants to know how long he would survive.
[2020-11-05] MEDS ORDERED: Octreotide Acetate 100 MCG/ML VIAL SC SCH (14:45)
[2020-11-05] MEDS: Morphine 2 MG/ML VIAL SLOW IVP PRN ×2 (15:22→21:18)
--- NOTE | 2020-11-05 15:48 | PDOC.FMACP ---
Advance Care Planning - Problem (1) Palliative care encounter Status: Acute Code(s): Z51.5 - ENCOUNTER FOR PALLIATIVE CARE (2) Failure to thrive Status: Acute Code(s): [id number] - (3) Physical deconditioning Status: Acute Code(s): R53.81 - OTHER MALAISE (4) Severe dehydration Status: Acute Code(s): E86.0 - DEHYDRATION (5) Severe protein-calorie malnutrition Status: Acute Code(s): E43 - UNSPECIFIED SEVERE PROTEIN-CALORIE MALNUTRITION (6) Liver cancer Status: Chronic Code(s): C22.9 - MALIG NEOPLASM OF LIVER, NOT SPECIFIED PRIMARY OR SEC - Note Participants: family, surrogate decision-maker, palliative care Summary: Palliative care has addressed Advanced Care Planning. The diagnosis, prognosis and goals of care were discussed. Appropriate forms and documentation to accomplish the goals of care were discussed. All questions were answered. Secondary to lethargic state conversations are with patient daughter Hospice Consult for GIP 11/04 evaluated. OOHDNAR and DNAR Daughter is not desiring GIP but consideration for home with hospice care. Palliative care RN Violet Casas to follow up to revisit plan and assist daughter with complex decision making. Time Spent (mins): 20
[2020-11-05] MEDS ORDERED: Admixture Fee 1 EACH in Dextrose 70% in Water 71.43 ML, Sterile Water Injection 645.24 ... IV SCH ×2 (18:00→19:00)
--- NOTE | 2020-11-05 18:43 | PRG ---
DATE OF SERVICE: 11/05/2020 The patient is seen and not doing very well, likely trended towards hospice. He is maintaining stable hemodynamics, except the blood pressure drifting down to 88/55. Laboratory investigations none as the patient has shown evidence of advanced renal failure. Job ID: [id number]
[2020-11-05 20:57] VITALS: TEMP 97.5
[2020-11-05] MEDS: Octreotide Acetate 100 MCG/ML VIAL SC SCH (20:58)
--- NOTE | 2020-11-05 22:29 | PRG ---
DATE OF SERVICE: 11/05/2020 SUBJECTIVE: Mr. Deng is nonresponsive. He can open his eyes. He cannot talk to me. He does not appear to be in pain. He has a Dobhoff tube in. He kind of grabs that. He has severe cachexia and muscle wasting. Abdomen is soft and nontender. Medications reviewed. OBJECTIVE: VITAL SIGNS: Temperature 97, pulse 99 to 100, blood pressure is 88/55 to 99/57. MENTAL STATUS: Diminished. LABORATORY DATA: [place] [address], hemoglobin 12, and platelet count 39,000. Last creatinine was 7.28 with a BUN of 152. Bilirubin of 21, AST and ALT of 121 and 123, and a lipase of 1456. Paracentesis yesterday, removed 4 L, no study sent. CT on 11/01 without contrast showed a cirrhotic liver, patchy atelectasis, ascites, but smaller and more cirrhotic appearing liver, very heterogeneous appearance versus his last imaging studies. ASSESSMENT: 1. End-stage liver disease and liver failure. 2. Pancreatitis with no present pain. He has had this in the past in relation to his treatment for hepatocellular carcinoma after episode of TACE. 3. Coagulopathy. 4. Failure to thrive. 5. Hepatoma with residual disease but felt to be under control by his oncologist and mopper in [place] we have talked with earlier this week. 6. Encephalopathy. RECOMMENDATIONS: I had a long conversation with the patient's daughter again today, talked to her a few times on the phone while he has been in the hospital and agree with plan for hospice care. He has not tolerated tube feeds. TPN is only making him to have more ascites. He has developed renal and liver failure. I suspect his pancreatitis could be related to prerenal. At this point in time, I think despite aggressive IV fluid resuscitation with albumin and TPN, his creatinine has continued to climb. The hospice care is appropriate. She is agreeable about comfort measures and we will remove his Dobhoff tube now. I have recommended she stop the TPN as well which she apparently is agree to earlier today. Palliative Care has talked to the patient's family. The daughter expresses that in her conversations with him in the past, he just wants to be kept comfortable if things got worse and I think we are at that point. I think they will opt for inpatient hospice over home hospice as it is only her daughter at home with no other family members to help and that would be most appropriate. I talked about this to the nursing to discontinue the Dobhoff tube. Job ID: [id number]
[2020-11-05] MEDS ORDERED: Lorazepam 2 MG/ML VIAL SLOW IVP SCH (22:45)
[2020-11-06] MEDS: methylPREDNISolone Sod Succ 40 MG VIAL IVP SCH (05:34)
[2020-11-06] MEDS: Octreotide Acetate 100 MCG/ML VIAL SC SCH (05:35)
[2020-11-06] MEDS: Morphine 2 MG/ML VIAL SLOW IVP PRN (05:39)
[2020-11-06] MEDS: Pantoprazole 40 MG VIAL IVP SCH (08:23)
[2020-11-06] MEDS ORDERED: Lorazepam 2 MG/ML VIAL SLOW IVP PRN (10:41)
--- NOTE | 2020-11-06 12:03 | PDOC.DS.DS ---
Provider Date of Admission: 10/31/20 06:56 Admitting Provider: Gabe Hensley MD Primary Care Physician: Billy Valdez MD Course Hospital Course: 80-year-old male presented with failure to thrive Code(s): [id number] - Status: Acute (2) Acute liver failure Status: Acute (3) HOLGER (acute kidney injury) Code(s): N17.9 - ACUTE KIDNEY FAILURE, UNSPECIFIED Status: Acute (4) Severe dehydration Code(s): E86.0 - DEHYDRATION Status: Acute (5) Urinary retention Code(s): R33.9 - RETENTION OF URINE, UNSPECIFIED Status: Acute (6) Physical deconditioning Code(s): R53.81 - OTHER MALAISE Status: Acute (7) Severe protein-calorie malnutrition Code(s): E43 - UNSPECIFIED SEVERE PROTEIN-CALORIE MALNUTRITION Status: Acute (8) Coagulopathy Status: Acute (9) Other issues per previous notes 80-year-old male with liver cancer with recent hospitalization at [facility] for dehydration, acute kidney injury and failure to thrive requiring TPN presented to the hospital on 10/31 with generalized weakness and failure to thrive. His work-up was consistent with severe acute kidney injury with creatinine of 5.4 with acute liver failure with bilirubin of 17.3. His bilirubin 2 weeks ago at [facility] was around 4 per his primary oncologist. He was started on IV fluids with sodium bicarbonate per nephrology. Dobbhoff tube was placed for feeding per GI recommendation. Patient was however unable to tolerate tube feeding. For this reason he was started on PPN. He was started on empiric antibiotics for questionable infiltrate on the chest CT. The case was discussed with the primary oncologist from [facility] who recommended IV Solu-Medrol 40 mg every 8 hourly. He was made DNR after discussion with the patient and the family on 11/01. I talked to the daughter [phone] very lengthy conversation. She has a hard time accepting her father's prognosis. All the options of management and care discussed including inpatient hospice. During my rounds i talk to her; comforted her; palliative at bedside; daughter accepted that he needs more help than she can provide, planning to transfer to inpatient rehab. Resuscitation Status: 11/01/20 12:21 Resuscitation Status Routine Resuscitation Status: DNAR: NO Resuscitation Discussed with: verified with daughter Lab Results: 11/04/20 06:14 11/04/20 06:14 Vitals: Vital Signs (12 hours) Temp Pulse Resp BP Pulse Ox 11/06/20 08:23 95 11/06/20 07:32 97.5 F L 95 16 96/58 L 95 11/06/20 04:17 97.5 F L 98 14 94/47 L 93 L Weight Admit Weight 110 lb 9.6 oz Weight 110 lb 9.6 oz Physical Exam: The patient was seen and examined on the day of discharge. During my rounds i talk to her; comforted her; palliative at bedside; daughter accepted that he needs more help than she can provide, planning to transfer to inpatient rehab General Appearance: ill appearing Plan Prescriptions: Lorazepam [Ativan] 2 mg SLOW IVP QID 10 Days #20 vial Morphine IR [Morphine Oral Solution] 5 mg PO Q4HR PRN 10 Days #100 ml PRN Reason: Pain Scopolamine 1 each TD DAILY PRN 15 Days #10 patch.td.3 PRN Reason: Secretions Home Medications: Medication Instructions Recorded Confirmed Type Chlorhexidine Gluconate 15 ml MM BID PRN 10/31/20 10/31/20 History [Chlorhexidine Gluconate 0.12% Oral Rinse] Megestrol Acetate 400 mg PO DAILY 10/31/20 10/31/20 History Simethicone [Mylicon Chewable] 80 mg PO QID PRN 10/31/20 10/31/20 History Triamcinolone Acetonide 1 applic TOP BID PRN 10/31/20 10/31/20 History [Triamcinolone Acetonide 0.1% Lotion] Mirtazapine [Remeron Soltab] 30 mg PO HS 11/01/20 11/01/20 History Lorazepam [Ativan] 2 mg SLOW IVP QID 10 Days #20 vial 11/06/20 Rx Morphine IR [Morphine Oral 5 mg PO Q4HR PRN 10 Days #100 ml 11/06/20 Rx Solution] Scopolamine 1 each TD DAILY PRN 15 Days #10 11/06/20 Rx patch.td.3 Allergies: hydrochlorothiazide Allergy (Verified 11/12/19 20:26) Penicillins Allergy (Verified 07/28/15 16:24) Sulfa (Sulfonamide Antibiotics) Allergy (Verified 07/29/15 04:31) Activity:: Activity as Tolerated Nourishment:: Regular Diet Referrals: Billy Valdez MD [Primary Care Provider] - Disposition: HOME Quality CORE MEASURES:: N/A
[2020-11-06 12:08] VITALS: BP 85/51
== END 2020-11-06 12:11 | disposition hospice, inpatient (51) | DRG 682 ==
LOC: ERS 04:19 → ERHOLD 06:56 → SURG A 16:18
PROVIDERS: ADMIT Student in an Organized Health Care Education/Training Program; ATTEND Internal Medicine
PROC: 3E0336Z Introduction of Nutritional Substance into Peripheral Vein, Percutaneous Approach (ICD-10-PCS; principal; 2020-10-31)
PROC: 0T9B70Z Drainage of Bladder with Drainage Device, Via Natural or Artificial Opening (ICD-10-PCS; 2020-11-01)
PROC: 0W9G3ZZ Drainage of Peritoneal Cavity, Percutaneous Approach (ICD-10-PCS; 2020-11-04)
DX: N17.9 Acute kidney failure, unspecified (principal); E43 Unspecified severe protein-calorie malnutrition; I21.A1 Myocardial infarction type 2; K85.90 Acute pancreatitis without necrosis or infection, unspecified; D68.9 Coagulation defect, unspecified; Z68.1 Body mass index [BMI] 19.9 or less, adult; R18.8 Other ascites; E87.2 Acidosis; C22.0 Liver cell carcinoma; I12.0 Hypertensive chronic kidney disease with stage 5 chronic kidney disease or end stage renal disease; G93.40 Encephalopathy, unspecified; Z20.822 Contact with and (suspected) exposure to COVID-19; Z51.5 Encounter for palliative care; Z66 Do not resuscitate; E86.0 Dehydration; R62.7 Adult failure to thrive; F41.9 Anxiety disorder, unspecified; I95.1 Orthostatic hypotension; N40.1 Benign prostatic hyperplasia with lower urinary tract symptoms; K72.90 Hepatic failure, unspecified without coma; D69.59 Other secondary thrombocytopenia; N18.6 End stage renal disease; R33.8 Other retention of urine; Z88.2 Allergy status to sulfonamides; Z88.0 Allergy status to penicillin; Z88.8 Allergy status to other drugs, medicaments and biological substances; Z90.49 Acquired absence of other specified parts of digestive tract; Z95.5 Presence of coronary angioplasty implant and graft; Z79.82 Long term (current) use of aspirin; Z79.899 Other long term (current) drug therapy; Z86.19 Personal history of other infectious and parasitic diseases; Z79.01 Long term (current) use of anticoagulants; Z87.891 Personal history of nicotine dependence
CPT/HCPCS: 36415; 36416; 49083; 71045; 74018; 74176; 76705; 80053; 80069; 81001; 82140; 82553; 83690; 83735; 83880; 84100; 84145; 84484; 85025; 85610; 85730; 86140; 87635; 93005; 93306; A4217; C9113; J1815; J1956; J2060; J2270; J2354; J2405; J2920; J3010; J7070; P9047; Q0162; U0003; U0005

== ENCOUNTER 2020-11-06 12:15 | Inpatient (IN) | payer OTHER ==
[2020-11-06 12:30] VITALS: BMI 16.7
[2020-11-06] MEDS ORDERED: Morphine 2 MG/ML VIAL SLOW IVP PRN (12:41)
[2020-11-06] MEDS ORDERED: Ondansetron PF 4 MG/2 ML Vial IVP PRN (12:45)
[2020-11-06] MEDS ORDERED: Scopolamine 1.5 mg/72 hour Patch TOP PRN (12:45)
[2020-11-06] MEDS: Lorazepam 2 MG/ML VIAL SLOW IVP SCH ×6 (12:51→23:23)
[2020-11-06] MEDS: Morphine 2 MG/ML VIAL SLOW IVP SCH ×7 (12:51→23:23)
[2020-11-06 21:30] VITALS: BP 69/37; TEMP 97.1
== END 2020-11-07 00:16 | disposition expired | DRG 951 ==
LOC: SURG A 12:15
PROVIDERS: ADMIT Family Medicine; ATTEND Family Medicine
DX: Z51.5 Encounter for palliative care (principal); E43 Unspecified severe protein-calorie malnutrition; R64 Cachexia; N17.9 Acute kidney failure, unspecified; I24.8 Other forms of acute ischemic heart disease; I10 Essential (primary) hypertension; Z66 Do not resuscitate; N40.0 Benign prostatic hyperplasia without lower urinary tract symptoms; G40.909 Epilepsy, unspecified, not intractable, without status epilepticus; I25.10 Atherosclerotic heart disease of native coronary artery without angina pectoris; E86.0 Dehydration; R62.7 Adult failure to thrive; Z88.2 Allergy status to sulfonamides; Z88.0 Allergy status to penicillin; Z88.8 Allergy status to other drugs, medicaments and biological substances; Z85.05 Personal history of malignant neoplasm of liver; Z79.899 Other long term (current) drug therapy; Z88.1 Allergy status to other antibiotic agents; Z79.82 Long term (current) use of aspirin; Z86.19 Personal history of other infectious and parasitic diseases; Z90.49 Acquired absence of other specified parts of digestive tract; Z98.42 Cataract extraction status, left eye; Z98.41 Cataract extraction status, right eye; Z98.890 Other specified postprocedural states; Z87.891 Personal history of nicotine dependence; Z98.61 Coronary angioplasty status
CPT/HCPCS: J2060; J2270